=== PATIENT | female | born 1940 | race Caucasian/White ===

== ENCOUNTER → 2016-06-16 | Outpatient (CLI) | payer OTHER, MEDICARE ==
[~2016-06-16] MED LIST: ALBU1AER9 INH; BUDE0.25 NEB; DIPH25CA37 PO; HYDR25TA4 PO; LEVO25TA PO; LEVO25TA5 PO; LPT/40 PO; METO1TAB31 PO; NITR0.4S UT
[2016-06-16 17:58] LABS: BLOOD UREA NITROGEN 19 mg/dl (7-18); BUN/CREATININE RATIO 24.4 (10-20); CALCIUM 9.4 mg/dl (8.5-10.1); CARBON DIOXIDE 30 mmol/L (21-32); CHLORIDE 106 mmol/L (98-107); CREATININE 0.76 mg/dl (0.60-1.20); GLUCOSE 90 mg/dl (70-99); MAGNESIUM 2.3 mg/dl (1.8-2.4); POTASSIUM 4.2 mmol/L (3.5-5.1); SODIUM 142 mmol/L (136-145)
[2016-06-16 18:06] LABS: BASO % 0.3 %; BASO ABS # 0.02 K/uL (0-0.2); COMPLETE YES; EOS % 3.6 %; HEMATOCRIT 41.1 % (37-47); IG% 0.2 %; LYMPH % 24.3 %; LYMPH ABS # 1.47 K/uL (1.2-3.4); MEAN CELL VOLUME 86.5 fL (80-100); MEAN CORPUSCULAR HGB CONC 32.4 g/dl (32-36); MEAN PLATELET VOLUME 11.2 fL (7.4-10.4); MONO % 12.5 %; NEUT % 59.1 %; PLATELET COUNT 304 K/uL (130-400); RED BLOOD COUNT 4.75 M/uL (4.2-5.4); WHITE BLOOD COUNT 6.06 K/uL (4.8-10.8)
[2016-06-16 18:09] LABS: PHOSPHORUS 3.5 mg/dl (2.5-4.9)
== END | disposition home or self-care (01) ==
LOC: C.LABMFLN 08:51
PROVIDERS: ATTEND Family Medicine
DX: E03.9 Hypothyroidism, unspecified (principal); R00.2 Palpitations

== ENCOUNTER → 2016-10-01 | Outpatient (CLI) | payer OTHER, MEDICARE ==
[~2016-10-01] MED LIST changes: +METO-478 PO; -METO1TAB31 PO
--- NOTE | 2016-10-01 16:52 | MAMMOGRAPHY REPORT ---
BILATERAL DIGITAL SCREENING MAMMOGRAM WITH CAD: 10/01/2016 CLINICAL HISTORY: Routine screening. Patient has no complaints. TECHNIQUE: Current study was also evaluated with a Computer Aided Detection (CAD) system. Bilatera l CC and MLO views were obtained. COMPARISON: Comparison is made to exams dated: 08/21/2015 mammogram - [facility], 04/06/2014 mammogram, 03/07/2013 mammogram, 06/16/2011 mammogram, and 03/14/2010 mammogram - [facility]. BREAST COMPOSITION: There are scattered areas of fibroglandular density in both breasts. FINDINGS: No suspicious masses, calcifications, or areas of architectural distortion are noted in e ither breast. There has been no significant interval change compared to prior exams. Scattered bilat eral benign-appearing calcifications are not significantly changed. Bilateral asymmetries are stabl e. A port catheter overlies the left pectoralis muscle. IMPRESSION: ACR BI-RADS CATEGORY 2: BENIGN There is no mammographic evidence of malignancy. A 1 year screening mammogram is recommended. The p atient will receive written notification of the results. Approximately 10% of breast cancers are not detected with mammography. A negative mammographic repor t should not delay biopsy if a clinically suggestive mass is present. Radha Connell M.D. /:10/01/2016 15:11:27 Supervisor Firearms: Neeru Ceron, [facility] letter sent: Normal 1/2 BI-RADS Code: ACR BI-RADS Category 2: Benign
== END | disposition home or self-care (01) ==
LOC: C.MAMM 12:36
PROVIDERS: ATTEND Family Medicine
DX: Z12.31 Encounter for screening mammogram for malignant neoplasm of breast (principal)

== ENCOUNTER → 2016-10-20 | Outpatient (CLI) | payer OTHER, MEDICARE ==
--- NOTE | 2016-10-20 12:21 | DIAGNOSTIC IMAGING REPORT ---
TWO VIEW CHEST CLINICAL HISTORY: COPD exacerbation. FINDINGS: PA and lateral chest radiographs are compared to study dated 05/23/2015 and correlated with chest CT dated 10/12/2011. A left subclavian central venous infusion port is unchanged in position. The cardiomediastinal silhouette is unremarkable. Emphysema and chronic interstitial thickening is similar to previous. Postoperative change and surgical clips are present in the left upper lung consistent with previous surgical resection. Paramediastinal density in the left upper lung is unchanged from previous. There is no airspace consolidation identified typical for pneumonia. No pleural effusion or pneumothorax is seen. The skeletal structures are osteopenic. Advanced degenerative change is present throughout the thoracic spine. Postoperative changes are noted in the left posterior ribs. IMPRESSION: 1. No acute cardiopulmonary abnormality. 2. Emphysema. 3. Postoperative change in the left lung and left upper lobe paramediastinal density is similar in appearance to the 05/23/2015 examination. Electronically signed by: Pro Arciniega M.D. 10/20/2016 12:20 PM Dictated Date/Time: 10/20/2016 12:17 PM
--- NOTE | 2016-10-20 12:48 | DIAGNOSTIC IMAGING REPORT ---
RIGHT SCAPULA CLINICAL HISTORY: M89.8X1 Pain of right [id number] Right COMPARISON: None. DISCUSSION: The bones and joint spaces appear intact. There is no evidence of fracture, dislocation or bony disease. There is no evidence for soft tissue swelling. Mild degenerative change right shoulder IMPRESSION: Negative study. Electronically signed by: Angelo Erickson M.D. 10/20/2016 12:46 PM Dictated Date/Time: 10/20/2016 12:45 PM
== END | disposition home or self-care (01) ==
LOC: C.RAD 11:38
PROVIDERS: ATTEND Family Medicine
DX: J44.1 Chronic obstructive pulmonary disease with (acute) exacerbation (principal); M89.8X1 Other specified disorders of bone, shoulder

== ENCOUNTER → 2017-03-17 | Outpatient (CLI) | payer OTHER, MEDICARE ==
[~2017-03-17] MED LIST changes: -METO-478 PO; +METO1TAB31 PO
[2017-03-17 18:11] LABS: PARTIAL THROMBOPLASTIN RATIO 1.1
== END | disposition home or self-care (01) ==
LOC: C.LABMFLN 14:25
PROVIDERS: ATTEND Family Medicine
DX: C34.02 Malignant neoplasm of left main bronchus (principal)

== ENCOUNTER → 2017-06-18 | Outpatient (CLI) | payer OTHER, MEDICARE ==
[~2017-06-18] MED LIST changes: +METO-478 PO; -METO1TAB31 PO
== END | disposition home or self-care (01) ==
LOC: C.LABMFLN 11:56
PROVIDERS: ATTEND Physician Assistant
DX: R30.0 Dysuria (principal)

== ENCOUNTER → 2017-07-02 | Outpatient (CLI) | payer OTHER, MEDICARE ==
[2017-07-02 18:41] LABS: ALBUMIN 3.5 gm/dl (3.4-5.0); TOTAL PROTEIN 7.3 gm/dl (6.4-8.2)
== END | disposition home or self-care (01) ==
LOC: C.LABMFLN 12:42
PROVIDERS: ATTEND Family Medicine
DX: E78.5 Hyperlipidemia, unspecified (principal)

== ENCOUNTER → 2017-08-23 | Outpatient (CLI) | payer OTHER, MEDICARE ==
[2017-08-23 17:59] LABS: BASO % 0.2 %; BASO ABS # 0.01 K/uL (0-0.2); EOS % 3.9 %; EOS ABS # 0.22 K/uL (0-0.5); HEMATOCRIT 39.9 % (37-47); HEMOGLOBIN 12.7 g/dL (12.0-16.0); IG# 0.01 K/uL (0.00-0.02); LYMPH % 21.7 %; LYMPH ABS # 1.21 K/uL (1.2-3.4); MEAN CELL VOLUME 87.1 fL (80-100); MEAN CORPUSCULAR HEMOGLOBIN 27.7 pg (25-34); MEAN CORPUSCULAR HGB CONC 31.8 g/dl (32-36); MEAN PLATELET VOLUME 11.5 fL (7.4-10.4); MONO % 8.6 %; MONO ABS # 0.48 K/uL (0.11-0.59); NEUT % 65.4 %; NEUT ABS # 3.65 K/uL (1.4-6.5); PLATELET COUNT 251 K/uL (130-400); RED CELL DISTRIBUTION WIDTH CV 14.6 % (11.5-14.5); RED CELL DISTRIBUTION WIDTH SD 46.7 fL (36.4-46.3); WHITE BLOOD COUNT 5.58 K/uL (4.8-10.8)
[2017-08-23 18:25] LABS: ALBUMIN 3.7 gm/dl (3.4-5.0); BLOOD UREA NITROGEN 18 mg/dl (7-18); CALCIUM 8.7 mg/dl (8.5-10.1); CARBON DIOXIDE 26 mmol/L (21-32); CREATININE 0.67 mg/dl (0.60-1.20); GLUCOSE 91 mg/dl (70-99); POTASSIUM 3.7 mmol/L (3.5-5.1); SODIUM 140 mmol/L (136-145)
[2017-08-23 18:36] LABS: PHOSPHORUS 3.4 mg/dl (2.5-4.9)
== END | disposition home or self-care (01) ==
LOC: C.LABMFLN 16:09
PROVIDERS: ATTEND Family Medicine
DX: I10 Essential (primary) hypertension (principal); E03.9 Hypothyroidism, unspecified

== ENCOUNTER → 2018-01-13 | Outpatient (CLI) | payer OTHER, MEDICARE | END | disposition home or self-care (01) | LOC: C.LABMFLN 15:19 | PROVIDERS: ATTEND Family Medicine | DX: M25.50 Pain in unspecified joint (principal) ==

== ENCOUNTER → 2018-01-18 | Outpatient (CLI) | payer OTHER, MEDICARE ==
--- NOTE | 2018-01-18 15:11 | DIAGNOSTIC IMAGING REPORT ---
LEFT SCAPULA 2 VIEWS HISTORY: M89.8X1 Pain of left scapula left COMPARISON: Left shoulder 05/23/2015. FINDINGS: Postoperative changes within the left lung apex remain unchanged. No rashes within the left scapula. Partial resection of the left posterior sixth rib consistent with postthoracotomy changes. Soft tissues are unremarkable. The left humerus is intact. IMPRESSION: No significant abnormality within the left scapula. Electronically signed by: Prabhakar Diamond M.D. 01/18/2018 3:09 PM Dictated Date/Time: 01/18/2018 3:08 PM
--- NOTE | 2018-01-18 15:17 | DIAGNOSTIC IMAGING REPORT ---
LUMBAR SPINE 5 VIEWS CLINICAL HISTORY: Low back pain. FINDINGS: 5 views of the lumbar spine are obtained. No prior studies are available for comparison at the time of dictation. The skeletal structures are osteopenic. There is no radiographic evidence of fracture or malalignment. Vertebral body height is maintained. There is mild anterolisthesis at L3-L4 and L4-L5. Alignment is otherwise preserved. The transverse and spinous processes appear intact. There is no evidence of spondylolysis. Advanced facet arthropathy is seen in the lower lumbar region. Small anterior osteophytes are seen throughout. Moderate disc space narrowing is seen at L5-S1. Mild disc space narrowing is seen at the remaining lumbar levels. The visualized sacrum and bony pelvis appear intact. Sclerotic degenerative change is noted in the sacroiliac joints. There are large pelvic phleboliths. No bowel obstruction is seen. Moderate constipation is observed. Advanced atherosclerotic calcification is noted in the abdominal aorta. IMPRESSION: 1. No acute bony abnormality is seen involving the lumbar spine. 2. Osteopenia and spondylotic change as above. Dictated: 01/18/2018 3:04 PM Transcribed: 01/18/2018 3:16 PM [email or web address] Electronically signed by: Pro Arciniega M.D. 01/18/2018 3:30 PM Dictated Date/Time: 01/18/2018 3:04 PM
== END | disposition home or self-care (01) ==
LOC: C.RAD 14:36
PROVIDERS: ATTEND Family Medicine
DX: M89.8X1 Other specified disorders of bone, shoulder (principal); M85.88 Other specified disorders of bone density and structure, other site

== ENCOUNTER → 2018-01-25 | Outpatient (CLI) | payer OTHER, MEDICARE ==
--- NOTE | 2018-01-26 13:38 | MAMMOGRAPHY REPORT ---
BILATERAL DIGITAL SCREENING MAMMOGRAM TOMOSYNTHESIS WITH CAD: 01/25/2018 CLINICAL HISTORY: Routine screening. Patient has no complaints. TECHNIQUE: The study was acquired using full field digital technology and interpreted from soft copy. Breast tomosynthesis in addition to standard 2D mammography was performed. Current study was also ev aluated with a Computer Aided Detection (CAD) system. COMPARISON: Comparison is made to exams dated: 10/01/2016 mammogram, 08/21/2015 mammogram - [facility], 04/06/2014 mammogram, 03/07/2013 mammogram, 06/16/2011 mammogram, and 03/14/2010 [facility]. BREAST COMPOSITION: There are scattered areas of fibroglandular density in both breasts. FINDINGS: There are stable asymmetries bilaterally. Scattered benign rodlike calcifications, rim sonia cifications and moderate vascular calcification in the breasts. No suspicious mass, architectural dis tortion or cluster of microcalcifications is seen. IMPRESSION: ACR BI-RADS CATEGORY 1: NEGATIVE There is no mammographic evidence of malignancy. A 1 year screening mammogram is recommended.( [id number]) The patient will receive written notification of the results. Some breast cancers are not detected with mammography. A negative mammographic report should not louise y biopsy if a clinically suggestive mass is present. Hilary Fernandez M.D. ay/:01/25/2018 19:40:08 Extruder Operator Helper: Dafne Ahn, RT(Gay)(M)(BD), [facility] letter sent: Normal 1/2 BI-RADS Code: ACR BI-RADS Category 1: Negative
== END | disposition home or self-care (01) ==
LOC: C.MAMM 13:58
PROVIDERS: ATTEND Family Medicine
DX: Z12.31 Encounter for screening mammogram for malignant neoplasm of breast (principal)

== ENCOUNTER 2023-03-23 15:58 | Inpatient (IN) ==
--- NOTE | 2023-03-23 15:56 | Emergency Department Note ---
Impression & Plan Chest pain, ST elevation (STEMI) myocardial infarction ED Provider Note ED Provider Note NAME: DELON MEZA AGE:82 SEX: Female : 1940 ARRIVES VIA: EMS INFORMANT: Patient ED PROVIDER(s): Loan Boyle DO CHIEF COMPLAINT: Chest pain, heart alert HPI: This is an 83-year-old female brought in by EMS as a heart alert that was called prehospital based on EMS report. I had received a phone call prior from the provider who saw the patient in an outpatient office today and was concern for chest pain and performed an EKG in the office which showed acute abnormalities consistent with likely STEMI. Patient was transported via ambulance and heart alert called prior to her arrival. By the time of her arrival patient had been given 324 mg of aspirin and 3 sublingual nitro with improvement of her pain. Patient rated her pain at a 2/10 on arrival. Patient stated the pain was central and otherwise nonradiating. She did admit to slight shortness of breath. She denies sweating, dizziness, or vomiting. She denies any recent illness. The outpatient provider that contacted me prior to her arrival stated she had recently had a cardiac evaluation including echo and stress test which were reported to her as reassuring. No prior cardiac cath. PAST MEDICAL HISTORY:See Below PAST SURGICAL HISTORY:See Below FAMILY HISTORY:See Below SOCIAL HISTORY:See Below HOME MEDICATIONS:See Below ALLERGIES:See Below VITALS:See Below PHYSICAL EXAMINATION: GENERAL: alert, well appearing, well nourished, no distress, non-toxic EYE EXAM: normal conjunctiva, PERRL and EOM's grossly intact OROPHARYNX: no exudate, no erythema, lips, buccal mucosa, and tongue normal and mucous membranes are moist NECK: supple, no nuchal rigidity, no adenopathy, non-tender LUNGS: Clear to auscultation. Normal chest wall mechanics, no w/r/r HEART: no murmurs, S1 normal and S2 normal ABDOMEN: abdomen soft, non-tender, normo-active bowel sounds, no masses, no rebound or guarding. BACK: Back is symmetrical on inspection and there is no deformity, no midline tenderness, no CVA tenderness. SKIN: no rashes, petechiae, orbruising UPPER EXTREMITIES: upper extremities are grossly normal. FROM, nml pulses b/l. LOWER EXTREMITIES: No pitting edema. FROM, nml pulses b/l. NEURO EXAM: Normal sensorium, cranial nerves II-XII grossly intact, normal speech, no facial droop,nogross weakness of arms, no gross weakness of legs. Gross sensation intact. No ataxia. Vital Signs: reviewed and remarkable Differential Diagnosis: [place], dysrhythmia, pericarditis, myocarditis, pericardial effusion, dissection, electrolyte abnormality, as well as others were considered MEDICAL DECISION MAKING: This is an 83-year-old female brought in by EMS due to concern for chest pain and abnormal EKG. Patient made a heart alert prior to her arrival. [facility] team was present upon her arrival in the ER. Labs are drawn and sent, IV established, EKG performed in the ER and patient monitored on telemetry. Patient had already received aspirin and nitro. Dr. Norton arrived at bedside and asked for patient to be given Brilinta and then be urgently transported to the [facility] [employer] [facility]. Patient was updated several times on concern for her condition and need for urgent intervention and agreed for intervention with Dr. Norton. Additional preparations made for procedure prior to transport. Consultation(s): 1607: Dr. Norton at bedside. [facility] team already present. ER Treatment Provided: See below Diagnostics Interpreted By Me: -ECG: Sinus tachycardia at 104, left axis, appearance of right bundle branch block, QRS and QTc normal, appearance of ST elevation noted in 2, 3, aVF, with ST depression in 1, aVL, V5 and V6; these changes are new compared to an EKG from February 2022. -Cardiac Monitoring: An order was placed for continuous cardiac monitoring. The monitor shows a rate of 102 with sinus tachycardia rhythm. -Laboratory studies: As stated above and show below. -Imaging studies: [] Triage Nursing Note Reviewed Prior/Outside Records Reviewed -office EKG reviewed from outpatient provider; recent echo reviewed Critical Care: Critical care of 35 min performed to assess and manage high likelihood of life- threatening STEMI, involving labs and imaging performed with assessment to evaluate chest pain diagnosis with frequent reassessment. This time includes bedside time, treatment discussions with patient/family/consultants, documentation time and excludes procedure time. Past Med/Surg History Medical History Abnormal CT scan, chest Aortic valve insufficiency Chronic back pain Degenerative joint disease of knee Diastolic CHF Dyspnea Excessive daytime sleepiness Frequent nocturnal awakening Generalized osteoarthritis of multiple sites GERD (gastroesophageal reflux disease) Hearing loss History of depression Hyperlipidemia Hypertension Hypothyroidism Hypoxia Malignant neoplasm of bronchus and lung stage 3 Nocturnal hypoxemia Obesity (BMI 30.0-34.9) Pleural effusion Restrictive lung disease Surgical History H/O dilation and curettage H/O laparoscopy History of bronchoscopy History of cataract surgery bilateral History of colonoscopy 02/17/2019 History of esophagogastroduodenoscopy (EGD) History of lobectomy of lung 2011--upper left lung d/t cancer History of total knee replacement LEFT Hx of lumpectomy Right (benign) S/P appendectomy S/P tubal ligation Varicose vein of leg STRIPPING - right leg Family History Son Family history of diabetes mellitus Mother Family hx colonic polyps Heart disease Prediabetes Sister Prediabetes Father Heart disease Prediabetes Aunt Breast cancer mothers side Other Diabetes No family history of adverse response to anesthesia Denies family history of Ovarian cancer Prostate cancer Myocardial infarction Colorectal cancer Social History Smoking Status: Never smoker Second Hand Exposure: Yes ( smoked cigarettes/pipe); Do You Dip or Chew Tobacco: No; Hx Alcohol Use: Yes Alcohol type: hard liquor Alcohol type Comment: strawberry daquiri's Alcohol Intake Frequency Comment: maybe once a year Hx Substance Use: No Preferred Language: Swedish Communication Ability: Effective Visual Impairment: Partially Limited Hearing Ability: Normal Fire 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 Required: No Beliefs That Will Affect Care: Latter-Day marital status: / Current Living Situation: Family Current Living Situation Comment: Lives with youngest son current occupational status: retired How many Children do You have: 3 How many Children do You have Comment: 3 living, 2 passed Feels Safe at Home: Yes Childhood Exposure to Second-Hand Smoke: No Diet: regular caffeine: Yes (coffee rarely / tea 1-2 cups daily) Dental Care, Regularly: No Physical Activity Frequency: Does not Exercise Seatbelt Use: always Sunscreen Use: Yes Do you think of yourself as: straight/heterosexual Gender Identity: Female Assistive Devices: Cane and Oxygen - Continuous Allergies Allergies Allergy/AdvReac Type Severity Reaction Status Date / Time Sulfa (Sulfonamide Allergy Mild RASH Verified 03/23/23 14:56 Antibiotics) codeine AdvReac Mild nausea,FUZZY Verified 03/23/23 14:56 IN HEAD morphine AdvReac Mild NAUSEA AND Verified 03/23/23 14:56 VOMITING,DIZZINESS tramadol AdvReac Mild DIZZY Verified 03/23/23 14:56 NAUSEA AND VOMITING Home Meds Home Medications Medication Instructions Recorded Confirmed calcium carbonate 500 mg calcium 500 mg PO BIDM 08/13/20 03/23/23 (1,250 mg) chewable tablet Oxygen Home 03/20/22 03/23/23 isosorbide mononitrate 30 mg 30 mg PO QAM 03/17/23 03/23/23 tablet,extended release 24 hr acetaminophen 325 mg tablet 650 mg PO Q6 PRN as needed 03/23/23 03/23/23 aspirin 81 mg tablet,delayed 81 mg PO QPM 03/23/23 03/23/23 release bumetanide 1 mg tablet 1 mg PO QAM 03/23/23 03/23/23 cyanocobalamin (vitamin B-12) 100 100 mcg PO DAILY 03/23/23 03/23/23 mcg tablet fluticasone furoate 200 1 inh inhalation DAILY 03/23/23 03/23/23 mcg-vilanterol 25 mcg/dose inhalation powder (Breo Ellipta) metoprolol succinate 25 mg 25 mg PO QAM 03/23/23 03/23/23 tablet,extended release 24 hr potassium chloride 20 mEq 20 meq PO QAM 03/23/23 03/23/23 tablet,extended release Previous Rx's Medication Instructions Recorded levothyroxine 25 mcg tablet 25 mcg PO .COMPLEX #114 tabs 04/19/22 atorvastatin 20 mg tablet 20 mg PO HS #90 tabs 04/21/22 budesonide 0.25 mg/2 mL suspension 0.25 mg (2 mL) inhalation BID #120 05/04/22 for nebulization mL albuterol sulfate 90 mcg/actuation 2 puff inhalation Q4H PRN 07/09/22 aerosol inhaler shortness of breath or wheezing #3 Inhalers verapamil 240 mg tablet,extended 240 mg PO BID #180 tabs 09/27/22 release nitroglycerin 0.4 mg sublingual 0.4 mg sublingual UD PRN chest 03/17/23 tablet pain #30 tabs Results & Data (ED) Laboratory Data 03/24/23 16:21 03/24/23 03:45 Lab Results 03/23/23 03/23/23 03/23/23 Range/Units 16:05 16:11 16:11 WBC 6.18 (4.8-10.8) K/ul RBC 4.25 (4.20-5.40) M/uL Hgb 12.3 (12.0-16.0) g/dl POC Hgb (12.0-16.0) g/dl Hct 37.9 (37.0-47.0) % POC Hct (37-47) % MCV 89.2 (80.0-100.0) fL MCH 28.9 (25.0-34.0) pg MCHC 32.5 (32.0-36.0) g/dL RDW Std Deviation 45.1 (36.4-46.3) fL RDW Coeff of [place] 13.9 (11.5-14.5) % Plt Count 346 (130-400) K/uL MPV 9.7 (9.4-12.4) fL Immature Gran % (Auto) 0.3 % Neut % (Auto) 61.4 % Lymph % (Auto) 25.6 % Iron % (Auto) 10.0 % Eos % (Auto) 2.1 % Baso % (Auto) 0.6 % Neut # (Auto) 3.79 (1.40-6.50) K/uL Lymph # (Auto) 1.58 (1.20-3.40) K/uL Iron # (Auto) 0.62 H (0.11-0.59) K/uL Eos # (Auto) 0.13 (0.00-0.50) K/uL Baso # (Auto) 0.04 (0.00-0.20) K/uL Immature Gran # (Auto) 0.02 (0.01-0.20) K/uL PT Cancelled INR Cancelled APTT Cancelled PTT Ratio Cancelled POC Sodium (135-144) mmol/L Sodium (136-145) mmol/L POC Potassium (3.3-5.0) mmol/L Potassium (3.5-5.1) mmol/L POC Chloride (101-112) mmol/L Chloride (98-107) mmol/L Carbon Dioxide (21-32) mmol/L POC Total CO2 (24-31) mmol/L Anion Gap (3-11) POC Anion Gap (16-25) mmol/L POC BUN (7-18) mg/dl BUN (6-23) mg/dl Creatinine (0.6-1.2) mg/dl POC Creatinine (0.6-1.3) mg/dl Est Cr Clr Drug Dosing ml/min Est GFR ( Amer) ml/min Est GFR (Non-Af Amer) ml/min BUN/Creatinine Ratio (10-20) Glucose (70-99(Fasting)) mg/dl POC Glucose (other) (70-99) mg/dl Calcium (8.6-10.3) mg/dl POC Ioniz Calcium Trisha (1.12-1.32) mmol/l Magnesium (1.7-2.4) mg/dl Total Bilirubin (0.2-1.0) mg/dl AST (13-39) U/L ALT (7-52) U/L Alkaline Phosphatase (34-104) U/L Total Creatine Kinase (26-192) U/L Troponin I High Sens (0-14) pg/ml B-Natriuretic Peptide (0-100) pg/ml Total Protein (6.0-8.3) gm/dl Albumin (3.4-5.0) gm/dl Globulin (2.5-4.0) gm/dl Albumin/Globulin Ratio (0.9-2) Lipase (11-82) U/L TSH (0.300-4.500) uIu/ml SARS-CoV-2, RNA, NAAT NEGATIVE (NEGATIVE) 03/23/23 03/23/23 03/23/23 Range/Units 16:11 16:11 16:15 WBC (4.8-10.8) K/ul RBC (4.20-5.40) M/uL Hgb (12.0-16.0) g/dl POC Hgb 12.9 (12.0-16.0) g/dl Hct (37.0-47.0) % POC Hct 38 (37-47) % MCV (80.0-100.0) fL MCH (25.0-34.0) pg MCHC (32.0-36.0) g/dL RDW Std Deviation (36.4-46.3) fL RDW Coeff of [place] (11.5-14.5) % Plt Count (130-400) K/uL MPV (9.4-12.4) fL Immature Gran % (Auto) % Neut % (Auto) % Lymph % (Auto) % Iron % (Auto) % Eos % (Auto) % Baso % (Auto) % Neut # (Auto) (1.40-6.50) K/uL Lymph # (Auto) (1.20-3.40) K/uL Iron # (Auto) (0.11-0.59) K/uL Eos # (Auto) (0.00-0.50) K/uL Baso # (Auto) (0.00-0.20) K/uL Immature Gran # (Auto) (0.01-0.20) K/uL PT INR APTT PTT Ratio POC Sodium 140 (135-144) mmol/L Sodium 139 (136-145) mmol/L POC Potassium 4.3 (3.3-5.0) mmol/L Potassium 4.1 (3.5-5.1) mmol/L POC Chloride 105 (101-112) mmol/L Chloride 105 (98-107) mmol/L Carbon Dioxide 27 (21-32) mmol/L POC Total CO2 30 (24-31) mmol/L Anion Gap 7 (3-11) POC Anion Gap 11.0 L (16-25) mmol/L POC BUN 25 H (7-18) mg/dl BUN 24 H (6-23) mg/dl Creatinine 1.04 (0.6-1.2) mg/dl POC Creatinine 1.0 (0.6-1.3) mg/dl Est Cr Clr Drug Dosing 45.5 ml/min Est GFR ( Amer) 58.8 ml/min Est GFR (Non-Af Amer) 50.7 ml/min BUN/Creatinine Ratio 23.1 H (10-20) Glucose 111 H (70-99(Fasting)) mg/dl POC Glucose (other) 110 H (70-99) mg/dl Calcium 10.2 (8.6-10.3) mg/dl POC Ioniz Calcium Trisha 1.20 (1.12-1.32) mmol/l Magnesium 2.0 (1.7-2.4) mg/dl Total Bilirubin 0.5 (0.2-1.0) mg/dl AST 16 (13-39) U/L ALT 12 (7-52) U/L Alkaline Phosphatase 97 (34-104) U/L Total Creatine Kinase 76 (26-192) U/L Troponin I High Sens 21.8 H (0-14) pg/ml B-Natriuretic Peptide 178 H (0-100) pg/ml Total Protein 7.7 (6.0-8.3) gm/dl Albumin 4.3 (3.4-5.0) gm/dl Globulin 3.4 (2.5-4.0) gm/dl Albumin/Globulin Ratio 1.3 (0.9-2) Lipase 81 (11-82) U/L TSH 3.809 (0.300-4.500) uIu/ml SARS-CoV-2, RNA, NAAT (NEGATIVE) Administered Medications Acetaminophen (Acetaminophen 325 Mg Tab) 650 mg PO Q4H PRN PRN Reason: MILD Pain (Scale 1,2,3) Stop: 04/22/23 17:38 Last Admin: 03/24/23 16:13 Dose: 650 mg Documented By: LUZ Aspirin (Aspirin 81 Mg Ectab) 81 mg PO [facility] Stop: 04/23/23 08:59 Last Admin: 03/24/23 07:37 Dose: 81 mg Documented By: LUZ Atorvastatin Calcium (Atorvastatin 40 Mg Tab) 40 mg PO [facility] Stop: 04/22/23 17:44 Last Admin: 03/24/23 07:37 Dose: 40 mg Documented By: Admin: 03/23/23 20:19 Dose: 40 mg Documented By: DANNY Bumetanide (Bumetanide 1 Mg Tab) 1 mg PO [facility] Stop: 04/23/23 08:59 Last Admin: 03/24/23 07:38 Dose: 1 mg Documented By: LUZ Cyanocobalamin (Cyanocobalamin (B-12) 100 Mcg Tablet) 100 mcg PO DAILY [facility] Stop: 04/23/23 08:59 Last Admin: 03/24/23 07:37 Dose: 100 mcg Documented By: LUZ Isosorbide Mononitrate (Isosorbide Iron Extended Rel 30 Mg Tabcr) 30 mg PO QAM [facility] Stop: 04/23/23 08:59 Last Admin: 03/24/23 07:37 Dose: 30 mg Documented By: LUZ Levothyroxine Sodium (Levothyroxine Sodium 25 Mcg Tablet) 25 mcg PO [id number] [facility] Stop: 04/23/23 06:29 Last Admin: 03/24/23 05:25 Dose: 25 mcg Documented By: DANNY Metoprolol Tartrate (Metoprolol Tartrate 25 Mg Tab) 25 mg PO BID [facility] Stop: 04/22/23 20:59 Last Admin: 03/24/23 07:37 Dose: 25 mg Documented By: Admin: 03/23/23 20:21 Dose: 25 mg Documented By: DANNY Miscellaneous (Icu Protocol For Hyperglycemia) 1 each N/A ACHS [facility] Stop: 03/25/23 17:58 Last Admin: 03/24/23 15:42 Dose: 1 each Documented By: Admin: 03/24/23 12:38 Dose: Not Given Documented By: Admin: 03/24/23 08:37 Dose: 1 each Documented By: Admin: 03/23/23 20:18 Dose: Not Given Documented By: Admin: 03/23/23 20:18 Dose: Not Given Documented By: DANNY Potassium Chloride (Potassium Chloride Crtab 20 Meq Tabcr) 20 meq PO QAM [facility] Stop: 04/23/23 08:59 Last Admin: 03/24/23 07:37 Dose: 20 meq Documented By: LUZ Ticagrelor (Ticagrelor 90 Mg Tab) 90 mg PO BID [facility] Stop: 04/23/23 08:59 Last Admin: 03/24/23 07:37 Dose: 90 mg Documented By: LUZ Verapamil HCl (Verapamil Hcl 240 Mg Tabcr) 240 mg PO BID [facility] Stop: 04/22/23 20:59 Last Admin: 03/24/23 07:37 Dose: 240 mg Documented By: Admin: 03/23/23 20:22 Dose: 240 mg Documented By: DANNY Discontinued Medications Budesonide (Budesonide 0.25 Mg/2 Ml Vial (Pulmicort)) 0.25 mg INH BID [facility] Stop: 04/22/23 20:59 Last Admin: 03/24/23 08:18 Dose: 0.25 mg Documented By: Admin: 03/23/23 21:26 Dose: 0.25 mg Documented By: ABDIEL Fentanyl Citrate (Fentanyl Citrate Pf 100 Mcg/2 Ml Vial) Confirm Administered Dose 100 mcg .ROUTE .STK-MED ONE Stop: 03/23/23 15:59 Last Increment: 03/23/23 17:15 Dose: 25 mcg Documented By: DAVY Fluticasone/Vilanterol (Fluticasone/Vilanterol 200/25mcg 14 Puffs/Inhaler) 1 puffs INH DAILY [facility] Stop: 04/23/23 08:59 Last Admin: 03/24/23 07:36 Dose: 1 puffs Documented By: LUZ Heparin Sodium (Porcine) (Heparin (Porcine) 1000 Unit/Ml 10 Ml ([employer] Use Only)) Confirm Administered Dose 10,000 units .ROUTE .STK-MED ONE Stop: 03/23/23 15:59 Last Admin: 03/23/23 17:15 Dose: 8,000 units Documented By: DAVY Heparin Sodium/Sodium Chloride (Heparin In Nss Infusion 1000 Unit/500 Ml (2 U/Ml) Bag) Confirm Administered Dose 3,000 units IV .STK-MED ONE Stop: 03/23/23 16:00 Last Admin: 03/23/23 18:26 Dose: Not Given Documented By: EFRAIN Sodium Chloride (Nss) 1,000 mls @ 75 mls/hr IV .[id number] [facility] Stop: 04/22/23 17:44 Last Infusion: 03/24/23 09:58 Dose: 0 mls/hr Documented By: Admin: 03/24/23 08:07 Dose: 75 mls/hr Documented By: Infusion: 03/24/23 08:07 Dose: 75 mls/hr Documented By: Admin: 03/23/23 20:12 Dose: 75 mls/hr Documented By: DANNY Influenza Virus Vaccine (Influenza Vaccine High-Dose (Hd-Iiv4) Pf 65+ 0.7ml Syr) 0.7 ml IM .ONCE ONE Stop: 03/23/23 18:20 Last Admin: 03/23/23 20:18 Dose: Not Given Documented By: DANNY Metoprolol Tartrate (Metoprolol Tartrate 1 Mg/Ml Vial) Confirm Administered Dose 5 mg IV .STK-MED ONE Stop: 03/23/23 16:41 Last Admin: 03/23/23 18:26 Dose: Not Given Documented By: EFRAIN Midazolam HCl (Midazolam Hcl 1 Mg/Ml 2ml Vial) Confirm Administered Dose 2 mg .ROUTE .STK-MED ONE Stop: 03/23/23 15:59 Last Increment: 03/23/23 17:15 Dose: 1 mg Documented By: DAVY Nicardipine HCl (Nicardipine Hcl Inj 2.5 Mg/Ml 10 Ml Amp) Confirm Administered Dose 25 mg .ROUTE .STK-MED ONE Stop: 03/23/23 15:59 Last Admin: 03/23/23 17:15 Dose: 0.1 mg Documented By: LISA Nitroglycerin/Dextrose (Nitroglycerin/D5w 100mcg/Ml 20ml Syr) Confirm Admi nistered Dose 2,000 mcg .ROUTE .STK-MED ONE Stop: 03/23/23 16:00 Last Admin: 03/23/23 17:15 Dose: 250 mcg Documented By: LISA Ticagrelor (Ticagrelor 90 Mg Tab) Confirm Administered Dose 180 mg .ROUTE .STK- MED ONE Stop: 03/23/23 16:10 Last Admin: 03/23/23 17:16 Dose: 180 mg Documented By: DAVY Discharge Plan Visit Data Chief Complaint: Heart Alert ED Provider: Loan Boyle Discharge Problem: Chest pain, ST elevation (STEMI) myocardial infarction Patient Disposition: Admitted As Inpatient Discharge Instructions Interventions: ED Discharge Assessment Last Done: 03/23/23 16:18
[~2023-03-23 15:58] MED LIST changes: -ALBU1AER9 INH; -BUDE0.25 NEB; -DIPH25CA37 PO; +HEPARIN (PORCINE) 1000 UNIT/ML 10 ML (CATH LAB USE ONLY) ONE; -HYDR25TA4 PO; -LEVO25TA PO; -LEVO25TA5 PO; -LPT/40 PO; -METO-478 PO; +MIDAZOLAM HCL 1 MG/ML 2ML VIAL ONE; -NITR0.4S UT; +fentaNYL citrate PF 100 MCG/2 ML VIAL ONE; +niCARdipine HCL INJ 2.5 MG/ML 10 ML AMP ONE
[2023-03-23] MEDS ORDERED: NITROGLYCERIN/D5W 100MCG/ML 20ML SYR ONE (15:59)
[2023-03-23] MEDS ORDERED: TICAGRELOR 90 MG TAB ONE (16:09)
[2023-03-23 16:21] LABS: Basophils # (auto) 0.04 K/uL (0.00-0.20); Basophils % (auto) 0.6 %; Eosinophils # (auto) 0.13 K/uL (0.00-0.50); Eosinophils % (auto) 2.1 %; Hematocrit (blood only) 37.9 % (37.0-47.0); Hemoglobin 12.3 g/dl (12.0-16.0); Immature Granulocytes # (auto) 0.02 K/uL (0.01-0.20); Immature Granulocytes % (auto) 0.3 %; Lymphocytes # (auto) 1.58 K/uL (1.20-3.40); Lymphocytes % (auto) 25.6 %; Mean Corpuscular Hemoglobin 28.9 pg (25.0-34.0); Mean Corpuscular Hgb Conc 32.5 g/dL (32.0-36.0); Mean Corpuscular Volume 89.2 fL (80.0-100.0); Mean Platelet Volume 9.7 fL (9.4-12.4); Monocytes # (auto) 0.62 K/uL (0.11-0.59); Neutrophils # (auto) 3.79 K/uL (1.40-6.50); Neutrophils % (auto) 61.4 %; Platelet Count 346 K/uL (130-400); RDW Coefficient of Variation 13.9 % (11.5-14.5); RDW Standard Deviation 45.1 fL (36.4-46.3); Red Blood Count 4.25 M/uL (4.20-5.40); White Blood Count 6.18 K/ul (4.8-10.8)
[2023-03-23] MEDS ORDERED: METOPROLOL TARTRATE 1 MG/ML VIAL IV ONE (16:40)
[2023-03-23 16:41] LABS: Albumin Globulin Ratio 1.3 (0.9-2); Albumin Level 4.3 gm/dl (3.4-5.0); BUN Creatinine Ratio 23.1 (10-20); Bilirubin,Total 0.5 mg/dl (0.2-1.0); Calcium 10.2 mg/dl (8.6-10.3); Creatinine Clr Calc Pharmacy 45.5 ml/min; Est GFR (African American) 58.8 ml/min; Est GFR (Non-African American) 50.7 ml/min; Globulin 3.4 gm/dl (2.5-4.0); Potassium 4.1 mmol/L (3.5-5.1); Total Protein 7.7 gm/dl (6.0-8.3)
[2023-03-23 16:47] LABS: Troponin I High Sensitivity 21.8 pg/ml (0-14)
[2023-03-23 16:57] LABS: Thyroid Stimulating Hormone 3.809 uIu/ml (0.300-4.500)
--- NOTE | 2023-03-23 17:18 | Critical Care Consultation ---
Date of Consultation March 23, 2023 Assessment & Plan (1) ST elevation (STEMI) myocardial infarction: (2) Chronic obstructive pulmonary disease: (3) Vocal cord paralysis: Plan Status post 2 drug-eluting stents to the RCA. Patient is currently hemodynamically stable. Continue post STEMI care with monitoring of the right femoral access site. Monitor for signs of dysrhythmia. Continue dual antiplatelet therapy. Medical management per cardiology. Trend troponins, echo. Continue bronchodilator therapy given history of COPD. Patient also has a history of vocal cord paralysis. Aspiration precautions. Suspect patient can be downgraded out of the ICU tomorrow. Thank you for allowing me to participate in the care of the patient. We will continue to follow as long as she remains under ICU status. History of Present Illness Reason for Consultation: STEMI status post heart alert and left heart catheterization Attending Physician: Gurmeet Norton MD, PhD History of Present Illness 82-year-old female with a history of lobectomy, XRT to the lung, chronic oxygen use, asthma and coronary artery disease presented to the ER due to chest pain. She was just discharged from [facility] on due to chest pain that occurred for 2 hours and radiated to the right jaw. She had a CT chest with PE protocol on 03/13/2023 per the notes available from [facility] which indicated moderate pericardial effusion and right-sided groundglass disease. Cardiology evaluated the patient and felt that she had demand ischemia and the pericardial effusion was unchanged. She was medically managed and ultimately discharged on the with antibiotics for possible aspiration pneumonia and Imdur 30 mg daily for angina. EKG today revealed evidence of acute inferior STEMI. Patient was given nitroglycerin, heparin and loaded with Brilinta. Earlier today the patient had a recurrence of severe chest pain with radiation to her neck. In the ICU her vitals remained stable and her chest pain has resolved. Allergies Allergy/AdvReac Type Severity Reaction Status Date / Time Sulfa (Sulfonamide Allergy Mild RASH Verified 03/23/23 14:56 Antibiotics) codeine AdvReac Mild nausea,FUZZY Verified 03/23/23 14:56 IN HEAD morphine AdvReac Mild NAUSEA AND Verified 03/23/23 14:56 VOMITING,DIZZINESS tramadol AdvReac Mild DIZZY Verified 03/23/23 14:56 NAUSEA AND VOMITING Home Medications Medication Instructions Recorded Confirmed Type calcium carbonate 500 mg calcium 500 mg PO BIDM 08/13/20 03/23/23 History (1,250 mg) chewable tablet Oxygen Home 03/20/22 03/23/23 History levothyroxine 25 mcg tablet 25 mcg PO .COMPLEX #114 tabs 04/19/22 03/23/23 Rx atorvastatin 20 mg tablet 20 mg PO HS #90 tabs 04/21/22 03/23/23 Rx budesonide 0.25 mg/2 mL suspension 0.25 mg (2 mL) inhalation BID #120 05/04/22 03/23/23 Rx for nebulization mL albuterol sulfate 90 mcg/actuation 2 puff inhalation Q4H PRN 07/09/22 03/23/23 Rx aerosol inhaler shortness of breath or wheezing #3 Inhalers verapamil 240 mg tablet,extended 240 mg PO BID #180 tabs 09/27/22 03/23/23 Rx release isosorbide mononitrate 30 mg 30 mg PO QAM 03/17/23 03/23/23 History tablet,extended release 24 hr nitroglycerin 0.4 mg sublingual 0.4 mg sublingual UD PRN chest 03/17/23 03/23/23 Rx tablet pain #30 tabs acetaminophen 325 mg tablet 650 mg PO Q6 PRN as needed 03/23/23 03/23/23 History aspirin 81 mg tablet,delayed 81 mg PO QPM 03/23/23 03/23/23 History release bumetanide 1 mg tablet 1 mg PO QAM 03/23/23 03/23/23 History cyanocobalamin (vitamin B-12) 100 100 mcg PO DAILY 03/23/23 03/23/23 History mcg tablet fluticasone furoate 200 1 inh inhalation DAILY 03/23/23 03/23/23 History mcg-vilanterol 25 mcg/dose inhalation powder (Breo Ellipta) metoprolol succinate 25 mg 25 mg PO QAM 03/23/23 03/23/23 History tablet,extended release 24 hr potassium chloride 20 mEq 20 meq PO QAM 03/23/23 03/23/23 History tablet,extended release Patient History Medical History (Updated 03/23/23 @ 18:19 by Anders Jiang MD) Abnormal CT scan, chest Aortic valve insufficiency Chronic back pain Degenerative joint disease of knee Diastolic CHF Dyspnea Excessive daytime sleepiness Frequent nocturnal awakening Generalized osteoarthritis of multiple sites GERD (gastroesophageal reflux disease) Hearing loss History of depression Hyperlipidemia Hypertension Hypothyroidism Hypoxia Malignant neoplasm of bronchus and lung stage 3 Nocturnal hypoxemia Obesity (BMI 30.0-34.9) Pleural effusion Restrictive lung disease Surgical History H/O dilation and curettage H/O laparoscopy History of bronchoscopy History of cataract surgery bilateral History of colonoscopy 02/17/2019 History of esophagogastroduodenoscopy (EGD) History of lobectomy of lung 2011--upper left lung d/t cancer History of total knee replacement LEFT Hx of lumpectomy Right (benign) S/P appendectomy S/P tubal ligation Varicose vein of leg STRIPPING - right leg Family History Son Family history of diabetes mellitus Mother Family hx colonic polyps Heart disease Prediabetes Sister Prediabetes Father Heart disease Prediabetes Aunt Breast cancer mothers side Other Diabetes No family history of adverse response to anesthesia Denies family history of Ovarian cancer Prostate cancer Myocardial infarction Colorectal cancer Social History Smoking Status: Never smoker Second Hand Exposure: Yes ( smoked cigarettes/pipe); Do You Dip or Chew Tobacco: No; Hx Alcohol Use: Yes Alcohol type: hard liquor Alcohol type Comment: strawberry daquiri's Alcohol Intake Frequency Comment: maybe once a year Hx Substance Use: No Preferred Language: Urdu Communication Ability: Effective Visual Impairment: Partially Limited Hearing Ability: Normal Filer Helper Required: No Beliefs That Will Affect Care: Protestant marital status: / Current Living Situation: Family Current Living Situation Comment: Lives with youngest son current occupational status: retired How many Children do You have: 3 How many Children do You have Comment: 3 living, 2 passed Other Information That Helps Us Care for You: No Feels Safe at Home: Yes Safety Concerns: Feels Safe At This Time Childhood Exposure to Second-Hand Smoke: No Diet: regular caffeine: Yes (coffee rarely / tea 1-2 cups daily) Dental Care, Regularly: No Physical Activity Frequency: Does not Exercise Seatbelt Use: always Sunscreen Use: Yes Do you think of yourself as: straight/heterosexual Gender Identity: Female Assistive Devices: Cane and Walker Review of Systems Review of Systems: All systems reviewed & are unremarkable except as noted in HPI & below Physical Exam Physical Exam: Constitutional: Frail and obese appearing female no apparent distress. Eyes: Pupils are equal round and reactive to light. Conjunctivae are normal. Anicteric sclera. Ears nose, mouth and throat: No obvious deformities. Neck: Trachea is midline. Visual inspection is normal. Respiratory: Mild expiratory wheezes noted. Prolonged phase of exhalation. Cardiovascular: Regular rate and rhythm. 3/6 systolic flow murmur. No edema. Musculoskeletal: Moves all extremities. Skin: No rashes, warm dry and intact. Neurologic: No obvious focal neurological deficits seen. Psychiatric: Alert and oriented x3 with a euthymic affect. Results & Data Results & Data Vital Signs (Past 12 Hours) Vital Signs Pulse Resp BP Pulse Ox O2 Del Method 03/23/23 16:08 115 H 03/23/23 15:55 104 H 20 194/111 H 98 Room Air Coding Level of Care Code 46190 IN/OBS CONSULT LVL 4,60M Diagnoses ST elevation (STEMI) myocardial infarction I21.3 Chronic obstructive pulmonary disease J44.9 COPD type: unspecified COPD Vocal cord paralysis J38.00 (2) Chronic obstructive pulmonary disease COPD type: unspecified COPD Qualified Code(s): J44.9 - Chronic obstructive pulmonary disease, unspecified
[2023-03-23] MEDS ORDERED: ACETAMINOPHEN 325 MG TAB PO PRN (17:39)
[2023-03-23] MEDS ORDERED: ATROPINE SULFATE 0.1 MG/ML 10ML SYR IV PRN (17:39)
[2023-03-23] MEDS ORDERED: ONDANSETRON INJ 2 MG/ML 2 ML VIAL IV PRN (17:39)
[2023-03-23] MEDS ORDERED: NITROGLYCERIN SL 0.4 MG/TAB TAB SL PRN (17:39)
--- NOTE | 2023-03-23 17:50 | Pre Anesthesia Assessment ---
Date of Service March 23, 2023 Pre Sedation Assessment Vital Signs Pulse Resp BP Pulse Ox O2 Del Method 03/23/23 16:08 115 H 03/23/23 15:55 104 H 20 194/111 H 98 Room Air Cardiovascular RRR, no murmur, no edema Respiratory normal respiratory effort, lungs clear to auscultation Pre-Sedation Airway Assessment Smoking Status: Unknown if ever smoked Mallampati 3 ASA 4 Notes The planned sedation has been discussed with the patient. Informed Consent was obtained. I have identified the patient, determined the appropriateness of sedation and have assessed the patient immediately prior to the procedure. All medicine(s) and interventions are by my order. [facility] [place] Codes (Charges) Indication for Procedure Indication for procedure: STEMI
--- NOTE | 2023-03-23 17:52 | Post Anesthesia Assessment ---
Date of Service March 23, 2023 Post Sedation Assessment Vital Signs Pulse Resp BP Pulse Ox O2 Del Method 03/23/23 16:08 115 H 03/23/23 15:55 104 H 20 194/111 H 98 Room Air Recovery Score Activity: Moves 4 extremities Respiration: Deep Breath/Cough Circulation: +/-20% PreAnes Value Consciousness: Fully Awake Oxygen Saturation: > 92% On Room Air Discharge Sedation Level of Care: Fast Track Phase II Post Sedation Plan On clinical assessment, the patient appears to have tolerated the sedation without complications. Patient is recovering as anticipated. Patient will continue to be monitored by nursing and may be discharged when sedation discharge criteria are met per below protocol. Upon Completions of procedure up to 15 minutes continue every 5 minute vital signs and the P.A.R. score; then discharge to a Phase I or Fast Track to Phase II per the following guidelines: * Discharge Patient to appropriate Phase II area if PAR is 8 or greater or return to pre- procedure baseline. The post - procedure orders will be as directed. * If PAR score is less than 8 or not return to pre-procedure baseline then patient will follow Phase I monitoring till PAR is reached for Phase II. The Phase I may be done in procedure room or may call to secure a Phase I area. * If naloxone or flumazenil are used for reversal, hold in Phase I for continued monitoring from when last reversal dose was given for a minimum of 60 minutes or longer pending the nurse and/or physician discretion of patient condition before discharge to Phase II. Please call the Sedation Physician to re-evaluate and complete post-note for discharge to Phase II area. Do NOT discharge from procedure sedation or Phase 1 until post- sedation evaluation note is complete by procedure /sedation MD Sedation Discharge Instructions to be given to the patient at discharge to home. [facility] [place]odes ([place]arges) Indication for Procedure Indication for procedure: STEMI Sedation/Anesthesia Procedure 1: Sedation/Anesthesia: 24102 Mod Sedation by the same physician;Init15 Min Child Age 5 & Up (Initial 15-minute, start 1624) Total Sedation Time (minutes): 45 Procedure 2: Sedation/Anesthesia: 77059 Mod Sedation by the same physician; Ea [id number] Minutes (Additional 30 men, and 1709) Total Sedation Time (minutes): 45
--- NOTE | 2023-03-23 17:55 | Cardiac Catheterization ---
ACC Data: Math Tutor Cardiac Status Clinical evaluation leading to the procedure CAD Presenation: STEMI Anginal Classification: CCS IV Heart Failure: No Cardiogenic Shock within 24 Hours: No Cardiac Arrest within 24 Hours: No Imaging Studies Past 6 Months: Yes Stress Studies Past 6 Months: Yes Stress Echocardiogram: Yes - Negative STEMI OR Non-STEMI Symptom Onset Date: 03/23/23 Thrombolytics: No Coronary Anatomy Dominant: Right Left Main (% Stenosis): Normal LAD (% Stenosis): Proximal (Mild) D1 (% Stenosis): Normal D2 (% Stenosis): Proximal (50%) Circumflex (% Stenosis): Ostial (Mild) and Proximal (30 to 40%) OM1 (% Stenosis): Normal OM2 (% Stenosis): Normal (Diffuse mild) RCA (% Stenosis): Proximal (40% then calcified 95 to 99%) and Mid (30%) R PDA (% Stenosis): Normal R PL1 (% Stenosis): Normal Diagnostic Physicians Name: Gurmeet Norton MD, PhD Closure Device Percutaneous Entry Location: Femoral Closure Device: Angio-Seal Recommendations: Medical Therapy and/or Counseling and PCI without planned CABG PCI Indication: PCI for STEMI - Stable First Noted: First EKG Reason For Delay in PCI:: Difficulty crossing culprit lesion Lesion Segment Name: Proximal RCA Culprit Artery: Yes Stenosis Prior to Rx (%): 95 to 99% Chronic Total Occlusion: No Pre-Procedure ADILENE Flow: 1 Previously Treated Lesion: No Lesion Complexity: Non-High/Non-C Lesion Length (mm): 18 Thrombus Present: Yes Bifurcation Lesion: No Guidewire Across Lesion: Yes Intraprocedure Events Significant Disection: No Perforation: No Cardiac Cath Procedure Full Procedure Date March 23, 2023 Pre-Procedure Diagnosis Pre-Procedure Diagnosis: STEMI AUC Score AUC Score: 09 Post-Procedure Diagnosis Post-Procedure Diagnosis: Severe CAD Procedure(s) Performed Procedure(s) Performed: Coronary Angiography, Drug Eluting Stent and Ultrasound Guided Vascular Access Copper Etcher Gurmeet Norton MD, PhD Estimated Blood Loss Estimated Blood Loss: 10 cc Medication(s) Medication(s): Fentanyl, Heparin, Hydralazine, Lidocaine 1% and Versed Summary of Findings Brief description: Patient was brought to the cardiac catheterization suite where she was shaved and prepped in a sterile fashion. Sedated using IV Versed and fentanyl. Soft tissues of the right groin were anesthetized using 10 mL of 1% Xylocaine. Using the ultrasound for guidance (image saved), the right femoral artery was accessed and a 6 [place] femoral artery sheath was placed. All catheters were then advanced and exchanged over a 0.035 J-tip wire. Left coronary angiography in orthogonal views with a 5 [place] JL 4 diagnostic catheter. Attempts to engage the right coronary with standard diagnostic catheters (JR4, 3 DRC, AR 1) were unsuccessful. It appeared to take off it very anteriorly near the noncoronary cusp. Right coronary angiography was then performed in orthogonal views with an 6 [place] AL-1 guide catheter. We proceeded immediately to PCI. Patient was provided IV heparin. ACT was checked intermittently through the case and additional heparin was provided as needed to maintain therapeutic ACT. Through the AL-1 guide catheter a BMW universal guidewire was advanced and positioned distally in the RCA. RCA lesion was predilated using a 2.5 x 12 mm trek balloon with multiple inflations up to 8 monica. Stent implantation with a 2.5 x 18 mm Pavel drug-eluting stent initially at 12 then followed by 18 atmospheres. Postdilatation with a 3.0 x 12 mm NC balloon at 18 monica distally and 20 monica proximally Implantation of a 3.5 x 8 mm [place] drug-eluting stent in an overlapped fashion proximally to the first stent deployed at 12 monica. The balloon was then advanced across the overlapped segment extending into the proximal portion of the first stent where it was reinflated to 12 mnoica. Post dilatation of the distal stent using a 3.0 x 12 mm NC balloon at 18 monica. All balloons were removed. Guidewire was removed and angiography was performed in orthogonal views. Guide catheter was removed. Limited right femoral artery angiography was performed to evaluate for closure. Findings were favorable, therefore the femoral artery sheath was exchanged for a 6 [place] Angio-Seal closure device. This was deployed in the recommended fashion. We obtained immediate hemostasis and the patient remained hemodynamically stable. She was then transported to the ICU for further work-up and management. Coronary angiography findings: [id number] short vessel bifurcating into LAD and circumflex. No disease. [id number]-[id number] vessel which reaches the apex. Gives a large septal branch and a small to medium caliber first diagonal. The proximal segment has mild ca lcification and mild disease which is diffuse. Mid segment also with mild disease and then gives a medium caliber branching second diagonal. This has proximal 50% stenosis. Distally there is some mild luminal irregularities in the vessel is relatively small as it approaches the apex. [id number]-izdokwh and nondominant. Travels in the AV groove where the ostial to proximal segment has mild diffuse disease. It provides a high arising small OM1. The mid AV groove vessel remains large has mild calcium and focal stenosis of 30 to 40%. It then gives a large branching OM 2 this has 2 major branches which have diffuse luminal irregularities. The AV groove vessel distal to the OM 2 becomes medium in caliber tapering as it travels further and terminates as 2 small caliber posterolateral branches. These are tortuous as are the terminal branches of the other left-sided coronaries. RCA-this is large caliber and dominant. It arises anteriorly from the noncoronary cusp. Just after the conus there is a focal 40% stenosis and then the proximal segment has calcified 95 to 99% stenosis. ADILENE I flow in the vessel beyond this lesion. Mid RCA has a focal 30% stenosis with the distal RCA being normal. It bifurcates into a large PDA and a medium caliber posterior lateral branch. These vessels have no disease. The PDA is tortuous. PCI of RCA- 0% residual stenosis post PCI with implantation of 2 overlapped drug-eluting stents No evidence of dissection or perforation post PCI ADILENE-3 flow post PCI Summary: 1. Severe thrombotic occlusive disease of the proximal RCA is culprit for acute WA. 2. Successful PCI with implantation of 2 overlapped drug-eluting stents in the proximal RCA. 3. Mild nonocclusive coronary disease as described in the left coronary system. 4. Dual antiplatelet therapy with aspirin 81 mg daily and Brilinta 90 mg p.o. twice daily is recommended. 5. Guideline directed medical therapy for secondary prevention of coronary disease. This will include aspirin, beta-abran, and high intensity statin therapy. Hemodynamics Rest Ao:: 119/81 mmHg Final Ao: 138/64 mmHg LV: Not performed Recommendations Recommendations: Medical Therapy and/or Counseling and PCI without planned CABG Radiation Exposure (mGy) 2409 mGy, fluoroscopy time 17.8 minutes Contrast (mls) 220 mL Anesthesia 1 mg IV Versed, 25 mcg IV Benadryl. Start time 1624, end time 1709 Procedural Complication(s) None Disposition ICU I attest to the content of the Intraoperative Record and any orders documented therein. Any exceptions are noted below. [facility] Card Cath Procedure Codes Cardiac Catheterization Procedure 1: Cardiovascular Cath Procedures: 07987 Coronaries Therapeutic Services & Ancillary Procedure 1: Cardiovascular Tx and Anc Procedures: 32517 Ultrasonic Guidance Vascular Access Moderate Sedation Procedure 1: Sedation/Anesthesia: 98708 Mod Sedation by the same physician;Init15 Min Child Age 5 & Up (Initial 15 min, start time 1624) Procedure 2: Sedation/Anesthesia: 88270 Mod Sedation by the same physician; Ea [id number] Minutes (Additional 30 min, end time 1709) Stenting Procedure 1: Cardiovascular Stent Procedures: 30926 Perc transluminal revascularization of acute sub/total occl, aMI (Right coronary) PG Care Time/CCT Total # of Minutes Spent Total Time Spent with Patient: Total time spent is greater than 50% in coordination of care (as documented) at patient's floor/unit and/or counseling patient:
--- NOTE | 2023-03-23 17:57 | Electrocardiogram Report ---
Test Reason : Blood Pressure : / mmHG Vent. Rate : 104 BPM Atrial Rate : 104 BPM P-R Int : 160 ms QRS Dur : 114 ms QT Int : 370 ms P-R-T Axes : 099 -49 083 degrees QTc Int : 486 ms Sinus tachycardia Pulmonary disease pattern Right bundle branch block Left anterior fascicular block ST elevation consider inferior injury or acute infarct Consider right ventricular involvement in acute inferior infarct Abnormal ECG When compared with ECG of 23-FEB-2022 16:07, (RBBB and left anterior fascicular block) is now Present Acute Inferior infarct now present Confirmed by Asa Grossman ([id number]) on 03/23/2023 5:56:40 PM Referred By: Confirmed By:Asa Grossman
[2023-03-23] MEDS ORDERED: ALBUTEROL HFA 8 GM INHALER INH PRN (18:13)
--- NOTE | 2023-03-23 18:14 | History & Physical Report ---
Date of Service March 23, 2023 Assessment & Plan (1) ST elevation (STEMI) myocardial infarction: Plan: Inferior STEMI Outpatient EKG showing inferior STEMI, was brought by EMS as a heart alert and proceed directly to cardiac Hearing Therapy Teacher S/p 2X MAGDIEL to RCA Chest pain-free following catheterization R femoral access site C/D/I without evidence of hematoma Atorvastatin increased from 20 mg to 40 mg Continue metoprolol 25 mg p.o. twice daily, consolidate to succinate on discharge Continue isosorbide Continue Brilinta/aspirin DAPT Euvolemic on assessment Troponins trended, echo pending (2) Hypertension: Plan: Hypertension -Continue home verapamil (3) Hypothyroidism: Plan: Continue Synthroid (4) Hyperlipidemia: Plan: Statin as noted (5) Chronic obstructive pulmonary disease: Plan: COPD Continue Breo, budesonide Continue albuterol No wheezing/signs of exacerbation on admission (6) Vocal cord paralysis: Plan: Chronic, unchanged. Patient with chronically hoarse voice. Admission and Anticipated Discharge Date Admission Date: March 23, 2023 History of Present Illness Primary Care Provider: Ludin Bradshaw MD Angi is a 82-year-old female with a past medical history of NSCLC s/p lobectomy and XRT, asthma, CAD who presented to her PCP for right-sided jaw pain associated with some shortness of breath. She was found to have an inferior STEMI and was referred to the ER as a heart alert. Patient reports she was seen in [place] on the for similar symptoms, was noted to have a pericardial effusion but was not thought to have any cardiac ischemia and was discharged on antibiotics for suspected aspiration pneumonia with right-sided groundglass densities noted. She is seen at bedside after transfer from Hearing Therapy Teacher to the ICU. She reports that proceeding heart cath she had had right jaw pain for most of the morning, this has completely resolved post procedure. Prior to this admission she has had chronic shortness of breath and dyspnea on exertion, but has generally been without chest or jaw pain she did have 1 episode of similar right-sided jaw pain which was evaluated at [place] as previously noted. No fevers, chills, sweats. No nausea/vomiting. No diarrhea/constipation she denies cough. She took her medicines this morning. She does not use tobacco products, does not drink alcohol regularly. Full code Allergies Allergy/AdvReac Type Severity Reaction Status Date / Time Sulfa (Sulfonamide Allergy Mild RASH Verified 03/23/23 14:56 Antibiotics) codeine AdvReac Mild nausea,FUZZY Verified 03/23/23 14:56 IN HEAD morphine AdvReac Mild NAUSEA AND Verified 03/23/23 14:56 VOMITING,DIZZINESS tramadol AdvReac Mild DIZZY Verified 03/23/23 14:56 NAUSEA AND VOMITING Home Medications Medication Instructions Recorded Confirmed Type calcium carbonate 500 mg calcium 500 mg PO BIDM 08/13/20 03/23/23 History (1,250 mg) chewable tablet Oxygen Home 03/20/22 03/23/23 History levothyroxine 25 mcg tablet 25 mcg PO .COMPLEX #114 tabs 04/19/22 03/23/23 Rx atorvastatin 20 mg tablet 20 mg PO HS #90 tabs 04/21/22 03/23/23 Rx budesonide 0.25 mg/2 mL suspension 0.25 mg (2 mL) inhalation BID #120 05/04/22 03/23/23 Rx for nebulization mL albuterol sulfate 90 mcg/actuation 2 puff inhalation Q4H PRN 07/09/22 03/23/23 Rx aerosol inhaler shortness of breath or wheezing #3 Inhalers verapamil 240 mg tablet,extended 240 mg PO BID #180 tabs 09/27/22 03/23/23 Rx release isosorbide mononitrate 30 mg 30 mg PO QAM 03/17/23 03/23/23 History tablet,extended release 24 hr nitroglycerin 0.4 mg sublingual 0.4 mg sublingual UD PRN chest 03/17/23 03/23/23 Rx tablet pain #30 tabs acetaminophen 325 mg tablet 650 mg PO Q6 PRN as needed 03/23/23 03/23/23 History aspirin 81 mg tablet,delayed 81 mg PO QPM 03/23/23 03/23/23 History release bumetanide 1 mg tablet 1 mg PO QAM 03/23/23 03/23/23 History cyanocobalamin (vitamin B-12) 100 100 mcg PO DAILY 03/23/23 03/23/23 History mcg tablet fluticasone furoate 200 1 inh inhalation DAILY 03/23/23 03/23/23 History mcg-vilanterol 25 mcg/dose inhalation powder (Breo Ellipta) metoprolol succinate 25 mg 25 mg PO QAM 03/23/23 03/23/23 History tablet,extended release 24 hr potassium chloride 20 mEq 20 meq PO QAM 03/23/23 03/23/23 History tablet,extended release Past Med/Surg History Medical History (Updated 03/23/23 @ 18:19 by Anders Jiang MD) Abnormal CT scan, chest Aortic valve insufficiency Chronic back pain Degenerative joint disease of knee Diastolic CHF Dyspnea Excessive daytime sleepiness Frequent nocturnal awakening Generalized osteoarthritis of multiple sites GERD (gastroesophageal reflux disease) Hearing loss History of depression Hyperlipidemia Hypertension Hypothyroidism Hypoxia Malignant neoplasm of bronchus and lung stage 3 Nocturnal hypoxemia Obesity (BMI 30.0-34.9) Pleural effusion Restrictive lung disease Surgical History H/O dilation and curettage H/O laparoscopy History of bronchoscopy History of cataract surgery bilateral History of colonoscopy 02/17/2019 History of esophagogastroduodenoscopy (EGD) History of lobectomy of lung 2011--upper left lung d/t cancer History of total knee replacement LEFT Hx of lumpectomy Right (benign) S/P appendectomy S/P tubal ligation Varicose vein of leg STRIPPING - right leg Family History Son Family history of diabetes mellitus Mother Family hx colonic polyps Heart disease Prediabetes Sister Prediabetes Father Heart disease Prediabetes Aunt Breast cancer mothers side Other Diabetes No family history of adverse response to anesthesia Denies family history of Ovarian cancer Prostate cancer Myocardial infarction Colorectal cancer Social History Smoking Status: Unknown if ever smoked Second Hand Exposure: Yes ( smoked cigarettes/pipe); Do You Dip or Chew Tobacco: No; Hx Alcohol Use: Yes Alcohol type: hard liquor Alcohol type Comment: strawberry daquiri's Alcohol Intake Frequency Comment: maybe once a year Hx Substance Use: No Preferred Language: Maltese Communication Ability: Effective Visual Impairment: Partially Limited Hearing Ability: Normal Obstetrician Required: No Beliefs That Will Affect Care: None marital status: / Current Living Situation: Family Current Living Situation Comment: Lives with youngest son current occupational status: retired How many Children do You have: 3 How many Children do You have Comment: 3 living, 2 passed Feels Safe at Home: Yes Childhood Exposure to Second-Hand Smoke: No Diet: regular caffeine: Yes (coffee rarely / tea 1-2 cups daily) Dental Care, Regularly: No Physical Activity Frequency: Does not Exercise Seatbelt Use: always Sunscreen Use: Yes Do you think of yourself as: straight/heterosexual Gender Identity: Female Assistive Devices: Cane, Glasses, Nebulizer and Walker Physical Exam Physical Exam: General: A&Ox3. NAD. Cooperative. HEENT: Atraumatic, normocephalic. Hoarse voice. Vision/hearin gintact Pulm: CTAB A&P. -wheezes, -rales, -rhonchi. Symmetrical chest rise. No increased work of breathing. No respiratory distress. Cardiac: RRR, harsh sm. Radial pulses intact and symmetrical. Abdominal: Nontender, nondistended, soft. BS present. : R femoral access site C/D/I, Ext: warm, dry, no edema. Results & Data Results & Data Vital Signs (Past 12 Hours) Vital Signs Pulse Resp BP Pulse Ox O2 Del Method 03/23/23 16:08 115 H 03/23/23 15:55 104 H 20 194/111 H 98 Room Air PG Care Time/CCT Total # of Minutes Spent Total Time Spent with Patient: Total time spent is greater than 50% in coordination of care (as documented) at patient's floor/unit and/or counseling patient: Coding Level of Care Code 15613 INT INP/OBS CARE 3/75MIN Diagnoses ST elevation (STEMI) myocardial infarction I21.3 Hypertension I10 Hypertension type: essential hypertension Hypothyroidism E03.9 Hypothyroidism type: unspecified Hyperlipidemia E78.5 Chronic obstructive pulmonary disease J44.9 COPD type: unspecified COPD Vocal cord paralysis J38.00 (2) Hypertension Hypertension type: essential hypertension Qualified Code(s): I10 - Essential (primary) hypertension (3) Hypothyroidism Hypothyroidism type: unspecified Qualified Code(s): E03.9 - Hypothyroidism, unspecified (5) Chronic obstructive pulmonary disease COPD type: unspecified COPD Qualified Code(s): J44.9 - Chronic obstructive pulmonary disease, unspecified
[2023-03-23] MEDS ORDERED: INFLUENZA VACCINE HIGH-DOSE (HD-IIV4) PF 65+ 0.7mL SYR IM ONE (18:19)
[2023-03-23 18:35] LABS: Basophils # (auto) 0.04 K/uL (0.00-0.20); Basophils % (auto) 0.7 %; Eosinophils # (auto) 0.13 K/uL (0.00-0.50); Eosinophils % (auto) 2.4 %; Hematocrit (blood only) 37.4 % (37.0-47.0); Hemoglobin 11.9 g/dl (12.0-16.0); Immature Granulocytes # (auto) 0.02 K/uL (0.01-0.20); Immature Granulocytes % (auto) 0.4 %; Lymphocytes # (auto) 1.13 K/uL (1.20-3.40); Lymphocytes % (auto) 20.5 %; Mean Corpuscular Hemoglobin 28.4 pg (25.0-34.0); Mean Corpuscular Hgb Conc 31.8 g/dL (32.0-36.0); Mean Corpuscular Volume 89.3 fL (80.0-100.0); Mean Platelet Volume 9.9 fL (9.4-12.4); Monocytes % (auto) 9.1 %; Neutrophils % (auto) 66.9 %; Platelet Count 346 K/uL (130-400); RDW Standard Deviation 45.3 fL (36.4-46.3); Red Blood Count 4.19 M/uL (4.20-5.40); White Blood Count 5.52 K/ul (4.8-10.8)
[2023-03-23 19:27] LABS: INR 1.1 (0.9-1.1); Partial Thromboplastin Ratio > 4.9; Prothrombin Time 11.9 Seconds (9.0-12.0)
[2023-03-23 19:36] LABS: Partial Thromboplastin Time > 139.0 Seconds (21.0-31.0)
[2023-03-23 20:06] LABS: Estimated Average Glucose 128 mg/dl; Hemoglobin A1C 6.1 % (4.5-5.6)
[2023-03-23] MEDS: SODIUM CHLORIDE 0.9% 1,000 ML IV SCH (20:12)
[2023-03-23] MEDS: ICU Protocol for HYPERglycemia SCH (20:18)
[2023-03-23] MEDS: ATORVASTATIN 40 MG TAB PO SCH (20:19)
[2023-03-23] MEDS: METOPROLOL TARTRATE 25 MG TAB PO SCH (20:21)
[2023-03-23] MEDS: VERAPAMIL HCL 240 MG TABCR PO SCH (20:22)
[2023-03-23] MEDS: BUDESONIDE 0.25 MG/2 ML VIAL (PULMICORT) INH SCH (21:26)
[2023-03-24 04:32] LABS: Basophils # (auto) 0.02 K/uL (0.00-0.20); Basophils % (auto) 0.3 %; Eosinophils # (auto) 0.13 K/uL (0.00-0.50); Eosinophils % (auto) 2.1 %; Hematocrit (blood only) 35.9 % (37.0-47.0); Hemoglobin 11.5 g/dl (12.0-16.0); Immature Granulocytes # (auto) 0.01 K/uL (0.01-0.20); Immature Granulocytes % (auto) 0.2 %; Lymphocytes # (auto) 0.92 K/uL (1.20-3.40); Lymphocytes % (auto) 15.2 %; Mean Corpuscular Hemoglobin 28.7 pg (25.0-34.0); Mean Corpuscular Volume 89.5 fL (80.0-100.0); Mean Platelet Volume 9.8 fL (9.4-12.4); Monocytes # (auto) 0.63 K/uL (0.11-0.59); Monocytes % (auto) 10.4 %; Neutrophils # (auto) 4.34 K/uL (1.40-6.50); Neutrophils % (auto) 71.8 %; Platelet Count 318 K/uL (130-400); RDW Standard Deviation 45.2 fL (36.4-46.3); Red Blood Count 4.01 M/uL (4.20-5.40); White Blood Count 6.05 K/ul (4.8-10.8)
[2023-03-24 04:48] LABS: BUN Creatinine Ratio 26.7 (10-20); Calcium 9.2 mg/dl (8.6-10.3); Chol HDL Ratio 2.6 (0-5); Creatinine Clr Calc Pharmacy 59.4 ml/min; Est GFR (African American) 86.6 ml/min; Est GFR (Non-African American) 74.8 ml/min; Potassium 3.9 mmol/L (3.5-5.1)
[2023-03-24] MEDS: LEVOTHYROXINE SODIUM 25 MCG TABLET PO SCH (05:25)
[2023-03-24] MEDS: TICAGRELOR 90 MG TAB PO SCH ×2 (07:37→19:46)
[2023-03-24] MEDS: ISOSORBIDE MONO EXTENDED REL 30 MG TABCR PO SCH (07:37)
[2023-03-24] MEDS: METOPROLOL TARTRATE 25 MG TAB PO SCH ×2 (07:37→19:45)
[2023-03-24] MEDS: POTASSIUM CHLORIDE CRTAB 20 MEQ TABCR PO SCH (07:37)
[2023-03-24] MEDS: ASPIRIN 81 MG ECTAB PO SCH (07:37)
[2023-03-24] MEDS: CYANOCOBALAMIN (B-12) 100 MCG TABLET PO SCH (07:37)
[2023-03-24] MEDS: ATORVASTATIN 40 MG TAB PO SCH (07:37)
[2023-03-24] MEDS: VERAPAMIL HCL 240 MG TABCR PO SCH ×2 (07:37→19:45)
[2023-03-24] MEDS: BUMETANIDE 1 MG TAB PO SCH (07:38)
--- NOTE | 2023-03-24 07:54 | Hospitalist Progress Note ---
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 twice daily, consolidate to succinate on discharge Continue isosorbide Continue Brilinta/aspirin DAPT troponin, 21, 106, 980, 1119 -echo pending (2) Hypertension: Plan: Hypertension -Continue home verapamil, discuss with cardiology about changing this medications to try to align with Guideline based meds for CAD (3) Hypothyroidism: Plan: Continue Synthroid (4) Hyperlipidemia: Plan: Statin as noted (5) Chronic obstructive pulmonary disease: Plan: COPD Continue Breo, budesonide Continue albuterol No wheezing/signs of exacerbation on admission (6) Vocal cord paralysis: Plan: Chronic, unchanged. Patient with chronically hoarse voice. Admission and Anticipated Discharge Date Admission Date: March 23, 2023 Subjective pt is without chest pain or shortness of breath. She has no discomfort at her catheterization access site which is her right groin. Cardiology feels to be downgraded from intensive care unit will be moved to PCU Results & Data Results & Data Vital Signs (Past 12 Hours) Vital Signs Temp Pulse Pulse Resp BP BP Pulse Ox 03/24/23 03:33 98.1 F 75 16 159/75 H 96 03/23/23 23:45 98.1 F 68 20 133/66 97 03/23/23 23:30 66 21 96 03/23/23 23:20 66 21 96 03/23/23 23:10 67 18 96 03/23/23 23:00 66 19 95 03/23/23 22:50 67 19 94 03/23/23 22:40 67 17 96 03/23/23 22:30 69 21 95 03/23/23 22:20 71 22 96 03/23/23 22:10 74 22 96 03/23/23 22:00 82 22 95 03/23/23 21:50 73 25 H 96 03/23/23 21:40 73 18 97 03/23/23 21:30 74 20 100 03/23/23 21:30 103/65 03/23/23 21:20 76 20 95 10/17/23 21:10 80 18 96 03/23/23 21:00 82 17 96 03/23/23 21:00 109/70 03/23/23 20:50 85 16 97 03/23/23 20:40 84 18 97 03/23/23 20:30 86 19 97 03/23/23 20:30 152/86 H 03/23/23 20:20 88 19 97 03/23/23 20:10 89 16 98 03/23/23 20:08 87 19 96 03/23/23 20:08 121/79 03/23/23 20:00 87 17 97 03/23/23 19:50 88 18 97 03/23/23 20:00 98.1 F 16 103/65 94 03/23/23 21:29 74 18 98 O2 Del Method 03/24/23 03:33 Room Air 03/23/23 23:45 Room Air 03/23/23 23:30 03/23/23 23:20 03/23/23 23:10 03/23/23 23:00 03/23/23 22:50 03/23/23 22:40 03/23/23 22:30 03/23/23 22:20 03/23/23 22:10 03/23/23 22:00 03/23/23 21:50 03/23/23 21:40 03/23/23 21:30 03/23/23 21:30 03/23/23 21:20 03/23/23 21:10 03/23/23 21:00 03/23/23 21:00 03/23/23 20:50 03/23/23 20:40 03/23/23 20:30 03/23/23 20:30 03/23/23 20:20 03/23/23 20:10 03/23/23 20:08 03/23/23 20:08 03/23/23 20:00 03/23/23 19:50 03/23/23 20:00 Room Air 03/23/23 21:29 Room Air Laboratory Results reviewed CBC reviewed chemistry PG Care Time/CCT Total # of Minutes Spent Total Time Spent with Patient: Total time spent is greater than 50% in coordination of care (as documented) at patient's floor/unit and/or counseling patient: Coding Level of Care Code 53814 SUB INP/OBS CARE Diagnoses ST elevation (STEMI) myocardial infarction I21.3 Hypertension I10 Hypertension type: essential hypertension Hypothyroidism E03.9 Hypothyroidism type: unspecified Hyperlipidemia E78.5 Chronic obstructive pulmonary disease J44.9 COPD type: unspecified COPD Vocal cord paralysis J38.00 (2) Hypertension Hypertension type: essential hypertension Qualified Code(s): I10 - Essential (primary) hypertension (3) Hypothyroidism Hypothyroidism type: unspecified Qualified Code(s): E03.9 - Hypothyroidism, unspecified (5) Chronic obstructive pulmonary disease COPD type: unspecified COPD Qualified Code(s): J44.9 - Chronic obstructive pulmonary disease, unspecified
[2023-03-24] MEDS: SODIUM CHLORIDE 0.9% 1,000 ML IV SCH (08:07)
[2023-03-24] MEDS: BUDESONIDE 0.25 MG/2 ML VIAL (PULMICORT) INH SCH (08:18)
[2023-03-24] MEDS: ICU Protocol for HYPERglycemia SCH ×3 (08:37→15:42)
[2023-03-24] MEDS ORDERED: FLUTICASONE/VILANTEROL 200/25MCG 14 PUFFS/INHALER INH SCH (09:00)
--- NOTE | 2023-03-24 10:58 | XCELERA ---
[id number] [id number]
[2023-03-24 11:02] LABS: iSTAT Hemoglobin 12.9 g/dl (12.0-16.0); iSTAT Ionized Calcium 1.2 mmol/l (1.12-1.32); iSTAT Potassium 4.3 mmol/L (3.3-5.0)
--- NOTE | 2023-03-24 11:24 | Critical Care Progress Note ---
Date of Service March 24, 2023 Assessment & Plan (1) ST elevation (STEMI) myocardial infarction: (2) Chronic obstructive pulmonary disease: (3) Vocal cord paralysis: Plan Status post 2 drug-eluting stents to the RCA. Patient is currently hemodynamically stable. Continue post STEMI care with monitoring of the right femoral access site. Monitor for signs of dysrhythmia. Continue dual antiplatelet therapy. Medical management per cardiology. Troponin downtrending. Echo reviewed with an LV EF of 55 to 60%. Grade 1 diastolic dysfunction. Mild to moderate AI. No significant aortic valve stenosis. Mild TR. Continue LABA/LAMA therapy given history of COPD. Discontinue Pulmicort. Patient also has a history of vocal cord paralysis. Aspiration precautions. Patient can be downgraded out of ICU today. Thank you for allowing me to participate in the care of the patient. Admission and Anticipated Discharge Date Admission Date: March 23, 2023 Subjective No acute events overnight. No specific complaints. Telemetry has been stable. Discussed on MDD rounds. Review of Systems Review of Systems: All systems reviewed & are unremarkable except as noted in HPI & below Physical Exam Physical Exam: Constitutional: Frail and obese appearing female no apparent distress. Eyes: Pupils are equal round and reactive to light. Conjunctivae are normal. Anicteric sclera. Ears nose, mouth and throat: No obvious deformities. Neck: Trachea is midline. Visual inspection is normal. Respiratory: Mild expiratory wheezes noted. Prolonged phase of exhalation. Cardiovascular: Regular rate and rhythm. 3/6 systolic flow murmur. No edema. Musculoskeletal: Moves all extremities. Skin: No rashes, warm dry and intact. Neurologic: No obvious focal neurological deficits seen. Psychiatric: Alert and oriented x3 with a euthymic affect. Results & Data Results & Data Vital Signs (Past 12 Hours) Vital Signs Temp Pulse Pulse Resp BP BP Pulse Ox 03/24/23 09:54 80 22 97 03/24/23 09:54 128/78 03/24/23 09:01 78 17 97 03/24/23 09:01 94/62 L 03/24/23 09:00 77 22 97 03/24/23 08:16 89 25 H 98 03/24/23 08:16 162/90 H 03/24/23 08:14 92 H 11 L 03/24/23 07:00 76 19 97 03/24/23 06:45 81 28 H 97 03/24/23 08:19 78 20 97 03/24/23 08:00 66 03/24/23 03:33 36.7 C 75 16 159/75 H 96 03/23/23 23:45 36.7 C 68 20 133/66 97 03/23/23 23:30 66 21 96 O2 Del Method 03/24/23 09:54 Room Air 03/24/23 09:54 03/24/23 09:01 03/24/23 09:01 03/24/23 09:00 03/24/23 08:16 03/24/23 08:16 03/24/23 08:14 03/24/23 07:00 03/24/23 06:45 03/24/23 08:19 Room Air 03/24/23 08:00 03/24/23 03:33 Room Air 03/23/23 23:45 Room Air 03/23/23 23:30 Coding Level of Care Code 89264 SUB INP/OBS CARE 07/01MIN Diagnoses ST elevation (STEMI) myocardial infarction I21.3 Chronic obstructive pulmonary disease J44.9 COPD type: unspecified COPD Vocal cord paralysis J38.00 (2) Chronic obstructive pulmonary disease COPD type: unspecified COPD Qualified Code(s): J44.9 - Chronic obstructive pulmonary disease, unspecified
--- NOTE | 2023-03-24 12:42 | Cardiology Consultation ---
Date of Consultation March 23, 2023 Assessment & Plan (1) ST elevation (STEMI) myocardial infarction: Status post MS with successful PCI to the RCA using 2 overlapped drug-eluting stents. Heart rate and blood pressure are at target. Tolerating dual antiplatelet therapy with aspirin 81 mg daily and Brilinta 90 mg p.o. twice daily. She will continue with dual antiplatelet therapy for up to 1 to 2 years. Guideline directed medical therapy for coronary disease to include high intensity statin therapy, beta-abran, plus or minus MAXIM inhibitor/ARB. Her echocardiogram does not show significant reduction in EF. She is appropriate for transfer to stepdown unit at this time. (2) Diastolic CHF: No evidence of volume overload at this time. The echo does suggest continued diastolic dysfunction. She will remain on her Bumex home dose. Agree with change to metoprolol succinate ER. Since she does not have reduced EF she could continue on the calcium channel abran. However, she would have more cardiovascular benefit by increasing her beta-abran and reducing the calcium channel abran. (3) Hyperlipidemia: High risk. High intensity statin therapy recommended. She actually had fairly well-controlled LDL on the 20 mg of a atorvastatin. I increased the dose to 40 mg predominantly for plaque stabilization. She is tolerating it thus far so we will continue for now. (4) Hypertension: Blood pressure is mostly well controlled. We will continue on her current medical regimen but agree consolidating her metoprolol to tartrate to a single dose as metoprolol succinate would be ideal. I can titrate her outpatient regimen in the office. Plan Transfer out of ICU. Continue to monitor. Most likely she will be appropriate for discharge by tomorrow afternoon. I would like to see her in follow-up in the office within 1 to 3 weeks of discharge. I will be recommending CARDIAC REHAB as an outpatient. History of Present Illness Reason for Consultation: STEMI Attending Physician: Levon Antoine MD History of Present Illness This is a pleasant 82-year-old female with out prior coronary artery disease history who presented when she developed sudden onset chest pressure and shortness of breath. She had gone to her primary care provider's office and developed the chest discomfort. An EKG was performed suggestive of acute myocardial infarction. She was emergently transported to the emergency department via EMS. She received aspirin and nitroglycerin. She was evaluated by the emergency medicine physician. I repeat EKG suggested ST depressions co nsistent with ongoing myocardial ischemia and the patient had continued chest discomfort. She also had a right bundle branch block. A heart alert was called and decision was made to proceed directly to the cardiac catheterization suite to undergo diagnostic cardiac cath plus or minus PCI as indicated. Informed consent was obtained from the patient prior to transport to the Registered Nurse [facility]. Cardiac catheterization revealed subtotal occlusion of the proximal RCA. Mild coronary disease on the left coronary system. She underwent PCI with implantation of 2 overlapped drug-eluting stents in the RCA with good angiographic results and return of ADILENE-3 flow. Her symptoms completely resolved and she was admitted to the ICU. She had no preceding symptoms of anginal chest pain, dyspnea on exertion above her baseline, syncope, near syncope, orthopnea, PND, racing heartbeat, palpitations, or edema. Review of the patient's records show she had lung cancer and is status post lobectomy. Cardiac evaluation demonstrated aortic insufficiency without significant aortic stenosis. No other significant aortic valve disease. Normal LVEF. She does have a history of prior diastolic heart failure. Comorbid disease includes hypertension and dyslipidemia. NOTE: THIS IS A LATE ENTRY FOR CONSULT NOTE ORIGINAL SERVICE 03/23/23 Allergies Allergy/AdvReac Type Severity Reaction Status Date / Time Sulfa (Sulfonamide Allergy Mild RASH Verified 03/23/23 14:56 Antibiotics) codeine AdvReac Mild nausea,FUZZY Verified 03/23/23 14:56 IN HEAD morphine AdvReac Mild NAUSEA AND Verified 03/23/23 14:56 VOMITING,DIZZINESS tramadol AdvReac Mild DIZZY Verified 03/23/23 14:56 NAUSEA AND VOMITING Home Medications Medication Instructions Recorded Confirmed Type calcium carbonate 500 mg calcium 500 mg PO BIDM 08/13/20 03/23/23 History (1,250 mg) chewable tablet Oxygen Home 03/20/22 03/23/23 History levothyroxine 25 mcg tablet 25 mcg PO .COMPLEX #114 tabs 04/19/22 03/23/23 Rx atorvastatin 20 mg tablet 20 mg PO HS #90 tabs 04/21/22 03/23/23 Rx budesonide 0.25 mg/2 mL suspension 0.25 mg (2 mL) inhalation BID #120 05/04/22 03/23/23 Rx for nebulization mL albuterol sulfate 90 mcg/actuation 2 puff inhalation Q4H PRN 07/09/22 03/23/23 Rx aerosol inhaler shortness of breath or wheezing #3 Inhalers verapamil 240 mg tablet,extended 240 mg PO BID #180 tabs 09/27/22 03/23/23 Rx release isosorbide mononitrate 30 mg 30 mg PO QAM 03/17/23 03/23/23 History tablet,extended release 24 hr nitroglycerin 0.4 mg sublingual 0.4 mg sublingual UD PRN chest 03/17/23 03/23/23 Rx tablet pain #30 tabs acetaminophen 325 mg tablet 650 mg PO Q6 PRN as needed 03/23/23 03/23/23 History aspirin 81 mg tablet,delayed 81 mg PO QPM 03/23/23 03/23/23 History release bumetanide 1 mg tablet 1 mg PO QAM 03/23/23 03/23/23 History cyanocobalamin (vitamin B-12) 100 100 mcg PO DAILY 03/23/23 03/23/23 History mcg tablet fluticasone furoate 200 1 inh inhalation DAILY 03/23/23 03/23/23 History mcg-vilanterol 25 mcg/dose inhalation powder (Breo Ellipta) metoprolol succinate 25 mg 25 mg PO QAM 03/23/23 03/23/23 History tablet,extended release 24 hr potassium chloride 20 mEq 20 meq PO QAM 03/23/23 03/23/23 History tablet,extended release Patient History Medical History Abnormal CT scan, chest Aortic valve insufficiency Chronic back pain Degenerative joint disease of knee Diastolic CHF Dyspnea Excessive daytime sleepiness Frequent nocturnal awakening Generalized osteoarthritis of multiple sites GERD (gastroesophageal reflux disease) Hearing loss History of depression Hyperlipidemia Hypertension Hypothyroidism Hypoxia Malignant neoplasm of bronchus and lung stage 3 Nocturnal hypoxemia Obesity (BMI 30.0-34.9) Pleural effusion Restrictive lung disease Surgical History H/O dilation and curettage H/O laparoscopy History of bronchoscopy History of cataract surgery bilateral History of colonoscopy 02/17/2019 History of esophagogastroduodenoscopy (EGD) History of lobectomy of lung 2011--upper left lung d/t cancer History of total knee replacement LEFT Hx of lumpectomy Right (benign) S/P appendectomy S/P tubal ligation Varicose vein of leg STRIPPING - right leg Family History Son Family history of diabetes mellitus Mother Family hx colonic polyps Heart disease Prediabetes Sister Prediabetes Father Heart disease Prediabetes Aunt Breast cancer mothers side Other Diabetes No family history of adverse response to anesthesia Denies family history of Ovarian cancer Prostate cancer Myocardial infarction Colorectal cancer Social History Smoking Status: Never smoker Second Hand Exposure: Yes ( smoked cigarettes/pipe); Do You Dip or Chew Tobacco: No; Hx Alcohol Use: Yes Alcohol type: hard liquor Alcohol type Comment: strawberry daquiri's Alcohol Intake Frequency Comment: maybe once a year Hx Substance Use: No Preferred Language: German Communication Ability: Effective Visual Impairment: Partially Limited Hearing Ability: Normal Wood Type Cutter Required: No Beliefs That Will Affect Care: Islam marital status: / Current Living Situation: Family Current Living Situation Comment: Lives with youngest son current occupational status: retired How many Children do You have: 3 How many Children do You have Comment: 3 living, 2 passed Feels Safe at Home: Yes Childhood Exposure to Second-Hand Smoke: No Diet: regular caffeine: Yes (coffee rarely / tea 1-2 cups daily) Dental Care, Regularly: No Physical Activity Frequency: Does not Exercise Seatbelt Use: always Sunscreen Use: Yes Do you think of yourself as: straight/heterosexual Gender Identity: Female Assistive Devices: Cane and Walker Review of Systems Review of Systems: Negative except as per HPI. She did tell me she had blood work to check for "infection" over a week ago performed/ordered by her primary care provider. Physical Exam Constitutional: WD/WN, vitals as above (Elderly, overweight, mild distress.) ENMT: Oromucosa is pink moist and intact. Neck: No JVD appreciated Respiratory: Mild respiratory distress. No crackles or rhonchi. Cardiovascular: Regular rhythm. Tachycardic rate. Soft systolic murmur. No edema. Musculoskeletal: no cyanosis or clubbing, extremities motor strength 5/5 (Right forearm and wrist with a cast) Neurologic: Cognition is intact. Speech is fluent. No focal deficits. Psychiatric: A+Ox3, euthymic affect (Mildly anxious) Results & Data Vital Signs (Past 12 Hours) Vital Signs Temp Pulse Pulse Resp BP BP Pulse Ox 03/24/23 09:54 80 22 97 03/24/23 09:54 128/78 03/24/23 09:01 78 17 97 03/24/23 09:01 94/62 L 03/24/23 09:00 77 22 97 03/24/23 08:16 89 25 H 98 03/24/23 08:16 162/90 H 03/24/23 08:14 92 H 11 L 03/24/23 07:00 76 19 97 03/24/23 06:45 81 28 H 97 03/24/23 08:19 78 20 97 03/24/23 08:00 66 03/24/23 03:33 36.7 C 75 16 159/75 H 96 03/23/23 23:45 36.7 C 68 20 133/66 97 O2 Del Method 03/24/23 09:54 Room Air 03/24/23 09:54 03/24/23 09:01 03/24/23 09:01 03/24/23 09:00 03/24/23 08:16 03/24/23 08:16 03/24/23 08:14 03/24/23 07:00 03/24/23 06:45 03/24/23 08:19 Room Air 03/24/23 08:00 03/24/23 03:33 Room Air 03/23/23 23:45 Room Air PG Care Time/CCT Total # of Minutes Spent Total Time Spent with Patient: Total time spent is greater than 50% in coordination of care (as documented) at patient's floor/unit and/or counseling patient: I spent a total of 65 minutes critical care time in the initial evaluation, examination, review of records, discussion with the patient, discussion with the ER staff as well as the inpatient staff, formulation and implementation of a plan of care, and all associated documentation. This time is exclusive of the time spent for the procedure. Coding Level of Care Code 09510 CRITICAL CARE 1ST 30-74M Diagnoses ST elevation (STEMI) myocardial infarction I21.3 Diastolic CHF I50.30 Hyperlipidemia E78.5 Hypertension I10 Hypertension type: essential hypertension Time Spent (min) 65 (4) Hypertension Hypertension type: essential hypertension Qualified Code(s): I10 - Essential (primary) hypertension
--- NOTE | 2023-03-24 12:49 | Cardiology Progress Note ---
Date of Service March 24, 2023 Assessment & Plan (1) ST elevation (STEMI) myocardial infarction: Plan: Status post PCI. Good angiographic and clinical outcome. Doing well at this time. She will remain on dual antiplatelet therapy with aspirin 81 mg daily and Brilinta 90 mg p.o. twice daily. Plan cardiac rehab as an outpatient. Continue guideline directed medical therapy. She is at target heart rate and blood pressure at this time. (2) Diastolic CHF: Plan: No evidence of volume overload. Echo without significant change from prior. Continue Bumex and potassium supplementation. Metoprolol succinate but we will increase to 50 mg daily. Reduce verapamil to 240 mg once daily. (3) Hypertension: Plan: Blood pressure adequately controlled. She will be on metoprolol succinate ER 50 mg daily, verapamil 240 mg p.o. daily, and isosorbide mononitrate 30 mg p.o. daily. (4) Hyperlipidemia: Plan: High risk. High intensity statin therapy with aggressive LDL reduction target. She seems to be at that already. She will continue atorvastatin 40 mg daily. Plan Patient will be transferring to stepdown unit. She will be likely appropriate for discharge tomorrow afternoon. Admission and Anticipated Discharge Date Admission Date: March 23, 2023 Subjective Patient did well overnight. She denies any recurrence of chest pain. She has no shortness of breath. She states that she feels well and is happy that she made it to her 83st birthday. She had questions regarding her medications, amount of damage, this stenting procedure, and her care going forward. All of this was discussed in detail. She voices no other complaints or concerns at this time. Review of Systems Review of Systems: Negative except as per HPI Physical Exam Constitutional: WD/WN, vitals as above (Elderly, overweight, mild distress.) ENMT: Oromucosa is pink moist and intact. Neck: No JVD appreciated Respiratory: Mild respiratory distress. No crackles or rhonchi. Cardiovascular: Regular rhythm. Normal rate. Soft systolic murmur. No edema. Musculoskeletal: no cyanosis or clubbing, extremities motor strength 5/5 (Right forearm and wrist with a cast) Neurologic: Cognition is intact. Speech is fluent. No focal deficits. Psychiatric: A+Ox3, euthymic affect (Mildly anxious) Results & Data Vital Signs (Past 12 Hours) Vital Signs Temp Pulse Pulse Resp BP BP Pulse Ox 03/24/23 11:45 80 03/24/23 09:54 80 22 97 03/24/23 09:54 128/78 03/24/23 09:01 78 17 97 03/24/23 09:01 94/62 L 03/24/23 09:00 77 22 97 03/24/23 08:16 89 25 H 98 03/24/23 08:16 162/90 H 03/24/23 08:14 92 H 11 L 03/24/23 07:00 76 19 97 03/24/23 06:45 81 28 H 97 03/24/23 08:19 78 20 97 03/24/23 08:00 66 03/24/23 03:33 36.7 C 75 16 159/75 H 96 O2 Del Method 03/24/23 11:45 03/24/23 09:54 Room Air 03/24/23 09:54 03/24/23 09:01 03/24/23 09:01 03/24/23 09:00 03/24/23 08:16 03/24/23 08:16 03/24/23 08:14 03/24/23 07:00 03/24/23 06:45 03/24/23 08:19 Room Air 03/24/23 08:00 03/24/23 03:33 Room Air PG Care Time/CCT Total # of Minutes Spent Total Time Spent with Patient: Total time spent is greater than 50% in coordination of care (as documented) at patient's floor/unit and/or counseling patient: Coding Level of Care Code 71918 SUB INP/OBS CARE 2/35MIN Diagnoses ST elevation (STEMI) myocardial infarction I21.3 Diastolic CHF I50.30 Hypertension I10 Hypertension type: essential hypertension Hyperlipidemia E78.5 (3) Hypertension Hypertension type: essential hypertension Qualified Code(s): I10 - Essential (primary) hypertension
[2023-03-24 16:42] LABS: Basophils # (auto) 0.02 K/uL (0.00-0.20); Basophils % (auto) 0.3 %; Eosinophils % (auto) 1.4 %; Hematocrit (blood only) 37.9 % (37.0-47.0); Hemoglobin 11.8 g/dl (12.0-16.0); Immature Granulocytes # (auto) 0.02 K/uL (0.01-0.20); Immature Granulocytes % (auto) 0.3 %; Lymphocytes # (auto) 1.12 K/uL (1.20-3.40); Lymphocytes % (auto) 16.2 %; Mean Corpuscular Hemoglobin 28.2 pg (25.0-34.0); Mean Corpuscular Hgb Conc 31.1 g/dL (32.0-36.0); Mean Corpuscular Volume 90.7 fL (80.0-100.0); Mean Platelet Volume 9.9 fL (9.4-12.4); Monocytes # (auto) 0.64 K/uL (0.11-0.59); Monocytes % (auto) 9.2 %; Neutrophils # (auto) 5.03 K/uL (1.40-6.50); Neutrophils % (auto) 72.6 %; Platelet Count 361 K/uL (130-400); RDW Coefficient of Variation 14.2 % (11.5-14.5); RDW Standard Deviation 46.7 fL (36.4-46.3); Red Blood Count 4.18 M/uL (4.20-5.40); White Blood Count 6.93 K/ul (4.8-10.8)
[2023-03-24 23:50] VITALS: TEMP 98.6
[2023-03-25] MEDS: LEVOTHYROXINE SODIUM 25 MCG TABLET PO SCH (03:22)
[2023-03-25] MEDS: METOPROLOL TARTRATE 25 MG TAB PO SCH (03:23)
[2023-03-25 04:19] LABS: Basophils # (auto) 0.03 K/uL (0.00-0.20); Basophils % (auto) 0.5 %; Eosinophils # (auto) 0.15 K/uL (0.00-0.50); Eosinophils % (auto) 2.7 %; Hematocrit (blood only) 34.7 % (37.0-47.0); Hemoglobin 11.1 g/dl (12.0-16.0); Immature Granulocytes # (auto) 0.01 K/uL (0.01-0.20); Immature Granulocytes % (auto) 0.2 %; Lymphocytes # (auto) 0.99 K/uL (1.20-3.40); Lymphocytes % (auto) 18.1 %; Mean Corpuscular Hemoglobin 28.6 pg (25.0-34.0); Mean Corpuscular Volume 89.4 fL (80.0-100.0); Mean Platelet Volume 9.7 fL (9.4-12.4); Monocytes # (auto) 0.65 K/uL (0.11-0.59); Monocytes % (auto) 11.9 %; Neutrophils # (auto) 3.63 K/uL (1.40-6.50); Neutrophils % (auto) 66.6 %; Platelet Count 299 K/uL (130-400); RDW Coefficient of Variation 14.1 % (11.5-14.5); RDW Standard Deviation 45.6 fL (36.4-46.3); Red Blood Count 3.88 M/uL (4.20-5.40); White Blood Count 5.46 K/ul (4.8-10.8)
[2023-03-25 04:27] LABS: BUN Creatinine Ratio 26.7 (10-20); Creatinine Clr Calc Pharmacy 58.8 ml/min; Est GFR (African American) 86.6 ml/min; Est GFR (Non-African American) 74.8 ml/min; Potassium 3.6 mmol/L (3.5-5.1)
--- NOTE | 2023-03-25 07:58 | Discharge Summary ---
Date of Service March 25, 2023 Admission HPI Per Admitting Provider Angi is a 82-year-old female with a past medical history of NSCLC s/p lobectomy and XRT, asthma, CAD who presented to her PCP for right-sided jaw pain associated with some shortness of breath. She was found to have an inferior STEMI and was referred to the ER as a heart alert. Patient reports she was seen in [place] on the for similar symptoms, was noted to have a pericardial effusion but was not thought to have any cardiac ischemia and was discharged on antibiotics for suspected aspiration pneumonia with right-sided groundglass densities noted. 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 She reports that preceding heart cath she had had right jaw pain for most of the morning, this has completely resolved post procedure. Prior to this admission she has had chronic shortness of breath and dyspnea on exertion, but has generally been without chest or jaw pain she did have 1 episode of similar right-sided jaw pain which was evaluated at [place] as previously noted. No fevers, chills, sweats. No nausea/vomiting. No diarrhea/constipation she denies cough. She took her medicines this morning. She does not use tobacco products, does not drink alcohol regularly. Full code Principal Diagnosis Inferior STEMI Discharge Exam PHYSICAL EXAMINATION Last 24h vital signs reviewed, see documentation in flowsheet General: comfortable appearing, no distress, sitting up in the chair HEENT: Normocephalic, atraumatic, pupils round and equal, sclerae anicteric, no conjunctival injection, moist mucus membranes Lungs: Normal respiratory effort. Clear to auscultation bilaterally. No RRW Heart: Regular rate and rhythm, no murmurs. No JVD Abdomen: Soft, nontender, nondistended. Bowel sounds present. Extremities: Warm, dry, well-perfused. No extremity edema. Right groin access site intact minimal ecchymosis no hematoma no tenderness no bruit. Bilateral DP pulses intact Right forearm and wrist is in a cast present prior to admission Neuro: Alert and oriented x 4, face symmetric, moves 4 extremities well Psych: Normal affect and behavior Discharge Data Allergies Allergy/AdvReac Type Severity Reaction Status Date / Time Sulfa (Sulfonamide Allergy Mild RASH Verified 03/23/23 14:56 Antibiotics) codeine AdvReac Mild nausea,FUZZY Verified 03/23/23 14:56 IN HEAD morphine AdvReac Mild NAUSEA AND Verified 03/23/23 14:56 VOMITING,DIZZINESS tramadol AdvReac Mild DIZZY Verified 03/23/23 14:56 NAUSEA AND VOMITING Consultations 03/23/23 16:32 Consult Cardiology Routine 03/23/23 17:44 Consult Cardiac Rehabilitation Routine 03/23/23 17:59 Consult [employer] Routine Procedures Performed Operation Date: 03/23/23 16:00 Actual Procedures p Cineradiography w/Routine Exam - Gurmeet Norton MD, PhD p Aspiration/PCI w/MAGDIEL for Stemi - Gurmeet Norton MD, PhD p Cath, Coronaries ONLY (no LV) - Gurmeet Norton MD, PhD s Ultrasound Vascular Access - Gurmeet Norton MD, PhD Ordered Studies 03/23/23 15:58 CL Cath Imgs for PACS use only Stat Hospital Course (1) ST elevation (STEMI) myocardial infarction: Inferior STEMI Outpatient EKG showing inferior STEMI, was brought by EMS as a heart alert and proceed directly to cardiac Planing Machine Operator Underwent coronary angiogram, successful placement of 2 drug eluting stents in RCA pain-free following catheterization. Jaw pain was her anginal equivalent - Follow up Echo on 03/24 unchanged from previous: EF 55-60%, concentric LVH, septal motion consistent with IVCD, mild-moderate AI, mild TR. inferior ST elevations resolved on follow-up EKG obtained today, which I reviewed R femoral access site without evidence of hematoma Atorvastatin increased from 20 mg to 40 mg Metoprolol succinate 50 mg daily Continue isosorbide DAPT with ASA 91 mg daily and ticagrelor Follow up in cardiology clinic, discussed plan of care with Dr. Norton today (2) Hypertension: Hypertension -Continue home verapamil for now, follow up in cardiology clinic (3) Hypothyroidism: Continue Synthroid (4) Hyperlipidemia: Statin increased as noted (5) Chronic obstructive pulmonary disease: COPD, history of lobectomy consequent restrictive lung disease Her state superintendent of schools recommended stopping pulmicort and changed her inhaler to Anoro Continue albuterol No wheezing/signs of exacerbation (6) Vocal cord paralysis: Chronic, unchanged. chronically hoarse voice. Total Time Total Time Spent Total Time Spent (In Minutes): 45 Discharge Plan Discharge Items Patient Disposition: Home - Self-Care Reason For Visit: STEMI Discharge Diagnosis: Inferior STEMI Condition on Discharge: Good Activity: Per Instructions section Non-emergency contact: Taxi Cab Driver Call non-emergency contact if: you have any medication questions, your symptoms worsen, your pain is not controlled, you have a fever, your temperature is above 101.5 and your wound has increased redness Follow-up/Referrals: Gurmeet Norton MD, PhD [Physician] - (1-3 weeks from procedure. The cardiology office will reach out to you to schedule an appointment. ) Ludin Bradshaw MD [Primary Care Provider] - 04/06/23 8:30 am (Will see SHERLYN Suh in Dr Bradshaw's office) Diet: Heart Healthy Nga Attending Provider Instructions: You were treated for a myocardial infarction (heart attack) caused by blockages in your right coronary artery. Two drug-eluting stents were placed in the artery. To keep the stents open it is critical to continue taking aspirin and Brilinta (ticagrelor) as prescribed by your food stylist. If you stop these medications too early, it could cause the stent to close up resulting in a risk of a severe heart attack. These medications should not be stopped, except in an emergency and/or under the direction of a food stylist. Atorvastatin (lipitor) was increased to improve your cholesterol and protect your heart. Metoprolol was increased to protect your heart and help it heal. Follow a heart-healthy, low-salt diet and follow up with cardiac rehab to work on your exercise tolerance. Seek immediate medical attention if you develop recurrent chest pain or shortness of breath. Your state superintendent of schools recommended stopping the pulmicort and changing your inhaler to Anoro, which I prescribed Addtl Wrap Yarn Sorter Provider Instructions: ACTIVITY RECOMMENDATIONS: It is common to feel weak and fatigue for a few days. * Do not drive or operate any motorized equipment for the next three days. * Limit stair usage (2 or 3 trips a day only) for the next three days. * Do not lift anything heavier than 10 pounds for the next three days. * Do not engage in vigorous exercise or any sports for the next five days. * You may shower the day after your procedure, but do not immerse the area for three days. Cleanse the site gently with soap and water. SPECIAL CARE INSTRUCTIONS: * You may replace the pressure dressing or band-aid the morning after the procedure. * After your procedure, it is normal to have a small bruise or small lump at the site. Examine your site daily for any change in the bruise or lump, redness, swelling, drainage or numbness. Notify your doctor if any change. BLEEDING: * If there is a small amount of bleeding at the site, lie down and apply firm pressure with a clean cloth for ten minutes. When the bleeding stops, lie quietly keeping the procedure limb straight for six hours. Notify your doctor as soon as possible. * If the bleeding does not stop after ten minutes or if there is a large amount of bleeding or spurting, call 911 immediately. Continue to lie down and hold firm pressure until help arrives. SKIN IRRITATION: * You may experience some redness and/or swelling in the area where radiation was administered. If any skin irritation occurs, please contact your family physician. FOLLOW UP VISIT: Keep any scheduled doctor appointments. Pending Studies at Discharge: No Stand-Alone Forms: My [email or web address], Smoking Cessation Medications and DC Order Prescriptions: New atorvastatin 40 mg Tablet 40 mg PO QAM Qty: 30 0RF metoprolol succinate 50 mg Tablet Extended Release 24 Hr 50 mg PO QAM Qty: 30 0RF Brilinta 90 mg Tablet 90 mg PO BID Qty: 60 1RF verapamil 240 mg tablet extended release 240 mg PO DAILY Qty: 30 11RF Anoro Ellipta 62.5-25 mcg/actuation Blister With Device 1 ea inhalation DAILY Qty: 30 0RF Continued levothyroxine 25 mcg tablet 25 mcg PO .COMPLEX Qty: 114 3RF Rx Instructions: 25 mcg PO; 1 tablet daily except on Sat/Sun 2 tablets daily PO daily; albuterol sulfate 90 mcg/actuation HFA aerosol inhaler 2 puff inhalation Q4H PRN (Reason: shortness of breath or wheezing) Qty: 3 1RF nitroglycerin 0.4 mg tablet, sublingual 0.4 mg SL UD PRN (Reason: chest pain) Qty: 30 2RF Rx Instructions: 0.4 mg SL PRN; DISSOLVE 1 TAB UNDER TONGUE NEEDED FOR CHEST PAIN (DME) Oxygen Home Liters Per Minute See Rx Instructions .ROUTE .MEDSUPPLY Rx Instructions: 2 L with activity, humidified PRN isosorbide mononitrate 30 mg tablet extended release 24 hr 30 mg PO QAM calcium carbonate 500 mg calcium (1,250 mg) Tablet,Chewable 500 mg PO BIDM cyanocobalamin (vitamin B-12) 100 mcg Tablet 100 mcg PO DAILY aspirin 81 mg Tablet,Delayed Release (Dr/Ec) 81 mg PO QPM bumetanide 1 mg tablet 1 mg PO QAM potassium chloride 20 mEq tablet extended release 20 meq PO QAM acetaminophen 325 mg Tablet 650 mg PO Q6 PRN (Reason: as needed) Discontinued atorvastatin 20 mg tablet 20 mg PO HS Qty: 90 3RF budesonide 0.25 mg/2 mL suspension for nebulization 0.25 mg inhalation BID Qty: 120 5RF verapamil 240 mg tablet extended release 240 mg PO BID Qty: 180 3RF metoprolol succinate 25 mg tablet extended release 24 hr 25 mg PO QAM fluticasone furoate-vilanterol [Breo Ellipta] 200-25 mcg/dose Blister With Device 1 inh INHALATION DAILY Discharge Orders: Discharge Order (Routine); Ordered 03/25/23 Ordered By: Marsha Wharton/Other Patient Handouts: Prediabetes, Symptoms of a Heart Attack, 5 Steps for Eating Healthier, Cardiac Rehab Exercise, Your Recovery Plan, Heart Attack: Leaving the Hospital Admission Data Admit Date/Time: 03/23/23 16:30 Attending Provider: Marsha Magallon Admit Provider: Anders Jiang Primary Care Provider: Ludin Bradshaw Other Providers: Gurmeet Norton ; Yoav Valentine Other Interventions: Discharge Summary Assessment (RN) Last Done: 03/25/23 10:59 Coding Level of Care Code 26030 INP/OBS DISCH >[address] elevation (STEMI) myocardial infarction I21.3 Hypertension I10 Hypertension type: essential hypertension Hypothyroidism E03.9 Hypothyroidism type: unspecified Hyperlipidemia E78.5 Chronic obstructive pulmonary disease J44.9 COPD type: unspecified COPD Vocal cord paralysis J38.00
[2023-03-25] MEDS: ASPIRIN 81 MG ECTAB PO SCH (08:35)
[2023-03-25] MEDS: ATORVASTATIN 40 MG TAB PO SCH (08:35)
[2023-03-25] MEDS: CYANOCOBALAMIN (B-12) 100 MCG TABLET PO SCH (08:35)
[2023-03-25] MEDS: ISOSORBIDE MONO EXTENDED REL 30 MG TABCR PO SCH (08:35)
[2023-03-25] MEDS: POTASSIUM CHLORIDE CRTAB 20 MEQ TABCR PO SCH (08:35)
[2023-03-25] MEDS: BUMETANIDE 1 MG TAB PO SCH (08:35)
[2023-03-25] MEDS: TICAGRELOR 90 MG TAB PO SCH (08:35)
[2023-03-25] MEDS: VERAPAMIL HCL 240 MG TABCR PO SCH (08:36)
[2023-03-25] MEDS ORDERED: METOPROLOL SUCC 50MG EXT REL TAB PO SCH (09:00)
[2023-03-25] MEDS ORDERED: UMECLIDINIUM/VILANTEROL 62.5/25MCG 7 PUFFS/INHALER INH SCH (09:00)
[2023-03-25 10:47] VITALS: BP 153/85; RESP 24; O2SAT 97
[2023-03-25 11:04] VITALS: PULSE 87
--- NOTE | 2023-03-25 13:03 | Electrocardiogram Report ---
Test Reason : Blood Pressure : / mmHG Vent. Rate : 092 BPM Atrial Rate : 092 BPM P-R Int : 162 ms QRS Dur : 120 ms QT Int : 378 ms P-R-T Axes : 095 -44 -24 degrees QTc Int : 467 ms Normal sinus rhythm Left axis deviation Pulmonary disease pattern Right bundle branch block T-wave inversion in Anterior leads Abnormal ECG When compared with ECG of 23-MAR-2023 16:03, ST no longer elevated in Inferior leads T wave inversion more evident in Anterolateral leads Confirmed by Asa Grossman ([id number]) on 03/25/2023 1:02:31 PM Referred By: REFERRED SELF Confirmed By:Asa Grossman
[2023-03-25] MEDS ORDERED: TICAGRELOR 90 MG TAB PO SCH (13:15)
[2023-03-25] MEDS ORDERED: Nursing to Pharmacy Communication SCH (13:15)
[2023-03-27] MEDS ORDERED: LEVOTHYROXINE SODIUM 25 MCG TABLET PO SCH (06:30)
== END 2023-03-25 13:39 | disposition home or self-care (01) | DRG 322 ==
LOC: ED 15:58 → OR 16:18 → SUATTDRO 16:30 → 1E 16:30 → OR 16:30
PROC: CLB.CCO (2023-03-23 16:00)
DX: Z79.82 Long term (current) use of aspirin; J44.9 Chronic obstructive pulmonary disease, unspecified; I21.19 ST elevation (STEMI) myocardial infarction involving other coronary artery of inferior wall; I11.0 Hypertensive heart disease with heart failure; Z79.890 Hormone replacement therapy; Z79.899 Other long term (current) drug therapy; Z88.5 Allergy status to narcotic agent; Z99.81 Dependence on supplemental oxygen; E03.9 Hypothyroidism, unspecified; Z11.52 Encounter for screening for COVID-19; I50.32 Chronic diastolic (congestive) heart failure; Z79.51 Long term (current) use of inhaled steroids; E78.5 Hyperlipidemia, unspecified; Z88.2 Allergy status to sulfonamides; I25.10 Atherosclerotic heart disease of native coronary artery without angina pectoris; J38.00 Paralysis of vocal cords and larynx, unspecified; Z90.2 Acquired absence of lung [part of]